=== PATIENT | female | born 1975 | race Caucasian/White ===

== ENCOUNTER 2019-10-26 20:00 | Outpatient (CLI) | payer OTHER, SELFPAY ==
--- NOTE | 2019-11-11 06:39 | SLEEP_ITS ---
DATE OF STUDY: 10/26/2019 REASON FOR STUDY: Obstructive sleep apnea. CLINICAL SUMMARY: [place] Sleepiness Scale, 10/20. Normal is 10 or less. Snoring, apneic events, morning headache, daytime sleepiness, memory impairment. Height is 66 inches. Weight is 195 pounds. Body mass index, BMI is 31.5. Less than 26 recommended. DESCRIPTION: Informed consent was obtained for the procedure, which included the simultaneous monitoring and recording of electroencephalography EEG, right electrooculography EOG, submental electromyography EMG, EKG, oral/nasal airflow, snoring, respiratory effort, oxygen saturation, right and left anterior tibialis electromyography EMG, and body position. Positive airway pressure therapy was applied and pressure slowly titrated upwards until optimal resolution of sleep-related respiratory disturbance was determined. EPOCHs of data was staged and scored by registered technologist according to published [facility] scoring guidelines and the 30% reduction in airflow associated with 4% or greater desaturation for definition of hypopnea. SLEEP ARCHITECTURE SUMMARY: Total recording time was 493.2 minutes. Total sleep time was 227 minutes. Stage N1 was 7% of the total sleep time, increased. Stage N2 was 60.4% of the total sleep time, increased. Stage N3 was 15.9% of the total sleep time, normal. Stage REM was 16.6% of the total sleep time, decreased. Latency to sleep onset was 6.4 minutes, decreased. Latency to REM sleep was 131 minutes, increased. Sleep efficiency care was 86.6%, normal. POSITIONAL SUMMARY: The patient slept 0 minutes/0% in the supine position. Slept 487.6 minutes/114.2% in the non-supine position. AROUSAL SUMMARY: No arousals were caused by apnea with index of 0 per hour. No arousals were caused by hypopnea with index of 0 per hour. One arousal was caused by snore with index of 0.1 per hour. Eight-five arousals were spontaneous with index of 10.3 per hour. Forty-two arousals were caused by limb movements with index of 5.1 per hour. Total number of arousals were 128 with index of 15.6 per hour. RESPIRATORY EVENTS SUMMARY: Total number of all apneas was 0. Total number of hypopnea was 0. Total number of apnea during REM was 0. Total number of hypopnea during REM was 0. Total number of apnea during non-REM was 0. Total number of hypopnea during the non-REM was 0. Total number of hypopnea was 0 with index of 0 per hour. Total number of obstructive hypopnea was 0 with index of 0 per hour. Total number of central hypopnea was 0 with index of 0 per hour. Total apnea-hypopnea index AHI was 0 per hour. Total obstructive apnea-hypopnea index AHI was 0 per hour. Total central apnea-hypopnea index AHI was 0 per hour. Total respiratory disturbance index, RDI was 0 per hour. OXYGEN SATURATION SUMMARY: During sleep, mean oxygen saturation was 96.6%. Maximum oxygen saturation was 98%. Minimum oxygen saturation was 93%. Oxygen saturation was lower than 90% for 0% of the total recording time. Oxygen saturation was lower than 88% for 0% of the total recording time. LIMB MOVEMENTS SUMMARY: Number of limb movements were 817 with index of 114.8 per hour. Number of periodic limb movements were 10 with index of 1.4 per hour. SNORE SUMMARY: Total number of snore was 82. HEART RATE SUMMARY: During sleep, mean heart rate was 54.7 beats per minute. Maximum heart rate was 111.9 beats per minute. Minimum heart rate was 29.1 beats per minute. CARDIAC EVENTS SUMMARY: Normal sinus rhythm was recorded throughout the night. CPAP THERAPY SUMMARY: ASV titration was performed from the beginning of the study. Different pressures were used at 5/315 and 6/315 cm of water due to obstructive respiratory events and snoring. However, when ASV was used, they
== END 2019-10-26 20:01 | disposition home or self-care (01) ==
LOC: ANHCSM 01-12 16:50
PROVIDERS: PCP Physician Assistant
DX: G47.33 Obstructive sleep apnea (adult) (pediatric) (principal)
CPT/HCPCS: 95811

== ENCOUNTER 2020-08-31 01:52 | Outpatient (CLI) | payer OTHER, SELFPAY ==
[2020-09-01 03:00] LABS: SARS-CoV-2 RNA PCR Negative
== END 2020-08-31 01:53 | disposition home or self-care (01) ==
LOC: ANHCOVIDDT 01:52
PROVIDERS: Visit Provider Obstetrics & Gynecology
DX: Z01.812 Encounter for preprocedural laboratory examination (principal); Z20.828 Contact with and (suspected) exposure to other viral communicable diseases
CPT/HCPCS: 87635; C9803; U0003

== ENCOUNTER 2020-08-31 08:20 | Outpatient (CLI) | payer OTHER, SELFPAY ==
[2020-08-31 09:14] LABS: Basophils Percent Auto 0.4 % (0.2-1.2); Eosinophils Absolute Auto 0.2 K/mm3 (0-0.3); Eosinophils Percent Auto 2.8 % (0-4.4); Hematocrit 40.4 % (37.0-47.0); Hemoglobin 13.2 g/dL (12.0-15.0); Immature Granulocyte Absolute 0.05 K/mm3 (0.00-0.031); Immature Granulocyte Percent A 0.7 % (0-0.5); Lymphocytes Absolute Auto 2.43 K/mm3 (0.9-3.2); Lymphocytes Percent Auto 33.5 % (18.3-44.2); Mean Corpuscular HGB Conc 32.7 g/dl (32-36); Mean Corpuscular Hemoglobin 31.5 pg (26-34); Mean Corpuscular Volume 96.4 fl (80-100); Mean Platelet Volume 9.4 fl (7.4-10.4); Monocytes Absolute Auto 0.4 K/mm3 (0.1-0.6); Monocytes Percent Auto 5.8 % (2.6-8.5); Neutrophils Absolute Auto 4.1 K/mm3 (1.3-6.7); Neutrophils Percent Auto 56.8 % (45.5-73.1); Platelet Count Result 290 k/mm3 (150-375); Red Blood Count 4.19 M/mm3 (4.2-5.4); Red Cell Distribution Width 12.9 % (11.5-14.5); White Blood Count 7.3 K/mm3 (4.5-10.0)
== END 2020-08-31 08:21 | disposition home or self-care (01) ==
LOC: ANHSURGERY 08:22
PROVIDERS: PCP Physician Assistant; Visit Provider Obstetrics & Gynecology
DX: R10.2 Pelvic and perineal pain (principal)
CPT/HCPCS: 36415; 85025; 86850; 86900; 86901

== ENCOUNTER 2020-09-02 02:41 | Day surgery (SDC) | payer OTHER, SELFPAY ==
[2020-08-24 12:58] VITALS: BMI 33.7
--- NOTE | 2020-08-31 07:11 | PM.IMHP ---
H&P: HPI History of Present Illness Date/Time: 08/31/20 07:11 Chief complaint: Pelvic Pain, Irregular Bleeding, Enlarged Uterus Narrative: Fuad Mata is a 45 year old female is status post uterine ablation who is admitted for robotic total vaginal hysterectomy and bilateral salpingectomies. She is status post ablation as noted. She has uterine prolapse and has pain discomfort and dyspareunia. She feels as though things are falling out. Risks and benefits were reviewed including but not exclusive of , aspiration pneumonia, bleeding, transfusion, perforation injury to bowel, bladder, ureters, or other internal organs with need for laparotomy. She voiced understanding. She received the [employer] handout entitled hysterectomy as well as the [facility] handout. She asked to proceed Review of Systems Review of Systems: All systems reviewed & are unremarkable except as noted in HPI and below PMFSH Family History Family History Mother Asthma Father Carcinoma of colon Other Diabetes mellitus Hypertension Social History Social History Smoking status: Current some day smoker Tobacco type: cigarettes Additional smoking assessment comments: APPROX 10 CIGARETTES/MONTH- SOCIAL SMOKER FOR LAST 20 YEARS Alcohol intake: current Drinks per week: 2 Spiritual care concerns: No Meds Home Medications and Allergies Home Medications Medication Instructions Recorded Confirmed Type ibuprofen 600 mg PO Q6H PRN 08/24/20 08/24/20 History levothyroxine 88 mcg PO DAILY 08/24/20 08/24/20 History Allergies Allergy/AdvReac Type Severity Reaction Status Date / Time oxycodone AdvReac nausea/vomi Verified 08/24/20 12:59 ting Exam Const: General: no acute distress Eyes: General: appearance normal, both eyes and all related structures Neck: Neck: supple and no JVD Thyroid: thyroid normal Resp: Effort & Inspection: normal respiratory effort Auscultation: clear to auscultation bilaterally Cardio: Rate: regular rate Rhythm: regular rhythm GI: Inspection: non-distended GI Palp: Yes Soft to palpation, No Tenderness to palpation present (GI) and No Guarding due to palpation present (GI) Auscultation: normal bowel sounds : General: Yes bladder normal to inspection External Female Exam: normal external appearance Speculum Exam - Cervix: Cervical os closed Bimanual exam- vagina & uterus: enlarged and Uterus displaced ( second-degree prolapse is noted) Skin: General skin exam: no rashes or lesions noted Extrem: General: normal to inspection and no edema Psych: Mental Status: mental status grossly normal Affect: normal affect Assessment and Plan Additional Plan impression: Enlarged uterus pelvic pain and prolapse. Blood bleeding per the patient secondary to ablation Plan: Robotic total vaginal hysterectomy and bilateral salpingectomies
--- NOTE | 2020-09-01 12:57 | WPDANESEPPF ---
Anes - Initial Pre Proc Eval Procedure: Operation Date: 09/02/20 07:30 Proposed Procedures p Robotic Assisted Total Vaginal Hysterectomy With Bilateral Salpingectomy - Shamir Ga MD Date/Time: 09/01/20 12:57 Surgeon: Shamir Ga MD Pre Op Diagnosis: Pelvic Pain, Irregular Bleeding, Enlarged Uterus Patient Data Age: 45 Gender: F Height: 1.65 m Weight: 92.08 kg Allergies Allergy/AdvReac Type Severity Reaction Status Date / Time oxycodone AdvReac nausea/vomi Verified 09/02/20 06:24 ting Home Medications Medication Instructions Recorded Confirmed Type ibuprofen 600 mg PO Q6H PRN 08/24/20 09/02/20 History levothyroxine 88 mcg PO DAILY 08/24/20 09/02/20 History hydrocodone-acetaminophen 1 tablet PO Q6H PRN #30 tablet 09/02/20 Rx Patient hx anesthesia problems: none Family hx anesthesia problems: none PMFSH Past Medical History Medical History Hypothyroidism Leiomyoma Obesity MARTHA (obstructive sleep apnea) Smoker Family History Family History Mother Asthma Father Carcinoma of colon Other Diabetes mellitus Hypertension Social History Social History Smoking status: Current some day smoker Tobacco type: cigarettes Additional smoking assessment comments: APPROX 10 CIGARETTES/MONTH- SOCIAL SMOKER FOR LAST 20 YEARS Alcohol intake: current Drinks per week: 2 Spiritual care concerns: No Anes - Eval Final PreProcedure Day of Procedure 09/01/20 12:57 Patient weight: obese Heart: regular rate and rhythm Lungs: clear to auscultation and normal air movement Airway: Mallampati scale class II Neurological: alert and oriented Last oral intake: >/= 8 hours ASA classification: III Emergent: no Anesthetic plan: proceed Anesthesia type and monitoring: general ETT Informed Consent: The patient's anesthetic plan and its attendant risks and benefits were discussed with the patient/family/POA. Questions were solicited and answers provided to the satisfaction of the patient/family/POA.
[2020-09-02] VITALS (18 sets, daily range): BP systolic 103–130; BP diastolic 60–91; PULSE 55–89; RESP 10–18; TEMP 36.3–36.9; O2SAT 97–100
--- NOTE | 2020-09-02 06:27 | WPDHPUPDATE1 ---
History and Physical Update Update Date/Time: 09/02/20 06:27 History and Physical has been reviewed, including an updated exam of the patient. There are NO changes in the patient's condition. Risks, benefits, and alternatives have been discussed and questions answered. Patient agrees to proceed with procedure.
[2020-09-02] MEDS: ACETAMINOPHEN 500 MG TABLET 1000 MG PO (06:59)
[2020-09-02] MEDS: KETOROLAC 15 MG/ML VIAL (*BKC) IV PUSH (07:00)
[2020-09-02] MEDS: LACTATED RINGERS 1,000 ML 30 ML IV CONT ×2 (07:00→08:41)
[2020-09-02] MEDS: ceFAZolin 2 GM/D5W 50 ML 2 GM/50 ML BAG IVPB (07:19)
--- NOTE | 2020-09-02 08:26 | P.OP_ITS ---
Procedure Note - Detailed Date of procedure: 09/02/20 Pre-op diagnosis: Pelvic Pain, Irregular Bleeding, Enlarged Uterus Surgeon: Shamir Ga MD Postop diagnosis: Pelvic pain/ irregular bleeding / enlarged uterus Procedure: Robotic total vaginal hysterectomy and bilateral salpingectomy EBL: 100cc Anesthesia: General endotracheal Complications: None Findings: Mildly enlarged uterus. Normal-appearing ovaries and tubes Description of procedure: The patient was prepped and draped in the normal sterile fashion and placed in the dorsal lithotomy position. Under excellent general endotracheal anesthesia weighted speculum was placed in posterior fornix vagina. Anterior lip of the cervix was grasped with a single-tooth tenaculum. The uterus sounded to 9cm. Serial dilatation with fragmented dilators were for performed. Next the 8. CHHAYA and the 3. Cold cup were placed on the cervix. The remainder the instruments in the vagina removed. Gloves were changed A supraumbilical incision was made and the Veress needle was passed in the abdomen. The abdomen filled with CO2 gas to 15mm Hg. The 8mm trocar was advanced in the abdomen. The downside visualized and no injury seen. The gas was attached and the patient placed in Trendelenburg. Right and left lateral quadrant incisions made and the 8mm trocars and advanced under direct visualization assuring no injury. In like fashion the right upper quadrant incision was made, and the 10mm trocar advanced under direct visualization assuring no injury. The robot was docked. Attention was turned to the console. The left round ligament was grasped, burned, cut. Anteriorly a bladder flap was formed by sharply dissecting the bladder caudally away from the cervix and uterus to the opposite round ligament which was clamped, burned, cut. Next the left fallopian tube was sharply dissected with cautery and monopolar by to be removed the entire tube itself. In like fashion the right fallopian tube was dissected away from the and brought to the level of the uterine body. Next the left utero-ovarian ligament was skeletonized thickened conserve the left ovary this was clamped, burned, cut. This was brought to the level of previously cut round ligament in like fashion conserving the right ovary the utero-ovarian ligament was clamped, burned, cut and brought to the level of the previously cut round ligament. Next the left cardinal and broad ligaments were serially skeletonized with the cervix and uterus clamped, burned, cut until the uterine vessels could be seen. These were individually clamped, burned, cut. In like fashion the cardinal and broad ligaments on the right were serially skeletonized. These were clamped, burned, cut until the uterine vessels were noted could be seen these were individually clamped, burned, cut. At that point excellent blanching of the uterus was seen. Colpotomy incision was made in the uterus cervix and tubes removed through the vagina. Blood loss was [id number] at that point. The vagina was closed with continuous running 0V lock from lateral edge to lateral edge and back to the midline. Irrigation was undertaken until clear and [place] Rim was applied to the raw surface area vagina. The gas was removed from the abdomen after the robot was undocked. The trocars were removed and the incisions closed with glue. All sponge, needle, instrument counts were correct. There were no immediate complications
[2020-09-02] MEDS: fentaNYL CITRATE INJ (*CRX) 100 MCG/2 ML VIAL 25 MCG IV PUSH ×2 (09:09→09:21)
[2020-09-02] MEDS: ONDANSETRON INJ 4 MG/2 ML VIAL IV PUSH (09:42)
--- NOTE | 2020-09-02 10:03 | SUR.PHASEI ---
Called RN to give report and she is hanging blood for another patient so report will be a bit yet.
--- NOTE | 2020-09-02 10:21 | PC.NURSE ---
This patient, Fuad Mata, was received from PACU on 09/02/20 at 1021. Patient/family oriented to unit policies and routines
[2020-09-02] MEDS: DEXTROSE 5%/LACTATED RINGERS 1,000 ML 125 ML IV CONT (10:44)
[2020-09-02] MEDS: MORPHINE SULFATE (*CRX) 4 MG/ML INJ IV PUSH (10:44)
[2020-09-02] MEDS: KETOROLAC 30 MG/ML VIAL (*BKC) IV PUSH ×2 (14:07→19:33)
[2020-09-02] MEDS: DOCUSATE SODIUM 100 MG CAPSULE PO (16:56)
[2020-09-02] MEDS: SIMETHICONE 80 MG TAB.CHEW PO (16:56)
[2020-09-02] MEDS: HYDROcodone/acetaminophen (*CRX) 5-325 MG TABLET 1 TAB PO (19:13)
[2020-09-03] MEDS: HYDROcodone/acetaminophen (*CRX) 5-325 MG TABLET 1 TAB PO ×3 (00:30→11:29)
[2020-09-03] MEDS: KETOROLAC 30 MG/ML VIAL (*BKC) IV PUSH ×2 (01:17→08:31)
--- NOTE | 2020-09-03 01:25 | PM.GYNPNOP ---
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 Tolerating diet. Would like to go home this am. Exam Narrative: Exam Narrative: AVSS I/O OK ABD soft, nontender. Incisions c/d/i. 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 [employer]E INSERTER - PN: Obj Data Vital Signs Vital Signs: Vital Signs - 24 hr 09/02/20 06:09 09/02/20 08:41 09/02/20 08:55 Temperature 36.4 C L 36.3 C L Pulse Rate 76 80 55 L Respiratory Rate 16 12 10 L Blood Pressure 129/91 H 103/60 109/63 Pulse Oximetry 100 100 100 09/02/20 09:10 09/02/20 09:25 09/02/20 09:40 Temperature Pulse Rate 59 L 62 61 Respiratory Rate 12 14 12 Blood Pressure 116/75 113/72 112/81 Pulse Oximetry 99 100 99 09/02/20 09:55 09/02/20 10:10 09/02/20 10:23 Temperature 36.3 C L Pulse Rate 62 62 66 Respiratory Rate 10 L 12 16 Blood Pressure 121/72 119/79 130/87 Pulse Oximetry 99 97 100 09/02/20 10:30 09/02/20 10:45 09/02/20 11:00 Temperature Pulse Rate 60 66 59 L Respiratory Rate 16 16 16 Blood Pressure 126/77 121/84 125/80 Pulse Oximetry 100 100 99 09/02/20 11:30 09/02/20 12:00 09/02/20 13:00 Temperature 36.9 C Pulse Rate 62 72 89 Respiratory Rate 16 16 16 Blood Pressure 124/81 126/85 120/84 Pulse Oximetry 100 100 100 09/02/20 14:51 09/02/20 15:45 09/02/20 19:25 Temperature 36.9 C 36.5 C 36.8 C Pulse Rate 80 81 68 Respiratory Rate 16 18 14 Blood Pressure 123/77 119/71 125/77 Pulse Oximetry 98 98 Intake/Output Intake/Output: Intake & Output 08/31/20 09/01/20 09/02/20 09/03/20 23:59 23:59 23:59 23:59 Intake Total 1950 Output Total 2820 450 Balance -870 -450 Meds/Results Medications: Active Medications Generic Name Dose Route Start Last Admin Trade Name Freq PRN Reason Stop Dose Admin Hydrocodone Bitart/Acetaminophen 1 tab 09/02/20 10:27 09/03/20 00:30 Hydrocodone/Acetaminophen (*Crx) 5-325 Mg Tablet PO 1 tab Q3H PRN Administration Pain Rated 5 or Less Hydrocodone Bitart/Acetaminophen 1 tab 09/02/20 10:27 Hydrocodone/Acetaminophen (*Crx) 10-325 Mg Tablet PO Q3H PRN Pain Rated 6 or Greater Docusate Sodium 100 mg 09/02/20 10:27 09/02/20 18:17 Docusate Sodium 100 Mg Capsule PO Not Given BID IRLANDA Enoxaparin Sodium 40 mg 09/02/20 10:27 09/02/20 18:17 Enoxaparin 40 Mg/0.4 Ml Syringe SUB-Q Not Given DAILY IRLANDA Dextrose/Lactated Ringer's 1,000 mls @ 125 mls/hr 09/02/20 10:27 09/02/20 18:50 Dextrose 5%/Lactated Ringers IV CONT Infused .Q8H IRLANDA Infusion Ibuprofen 600 mg 09/02/20 10:27 Ibuprofen 600 Mg Tablet PO Q6H PRN Cramping Ketorolac Tromethamine 30 mg 09/02/20 10:27 09/03/20 01:17 Ketorolac 30 Mg/Ml Vial (*Bkc) IV PUSH 09/07/20 10:28 30 mg Q6H PRN Administration Pain Rated 4-6 Morphine Sulfate 4 mg 09/02/20 10:27 09/02/20 10:44 Morphine Sulfate (*Crx) 4 Mg/Ml Inj IV PUSH 4 mg Q4H PRN Administration Severe breakthrough pain Naloxone HCl 0.1 mg 09/02/20 10:27 Naloxone Hcl 0.4 Mg/Ml Vial IV PUSH Q2M PRN Respiratory rate less than 10 Ondansetron HCl 4 mg 09/02/20 10:27 Ondansetron Inj 4 Mg/2 Ml Vial IV PUSH Q6H PRN Nausea And Vomiting Simethicone 80 mg 09/02/20 10:27 09/02/20 16:56 Simethicone 80 Mg Tab.Chew PO 80 mg Q2H PRN Administration Gas
[2020-09-03 04:25] VITALS: BP 117/82; PULSE 73; RESP 14; TEMP 36.9; O2SAT 99
[2020-09-03 04:59] LABS: Basophils Percent Auto 0.2 % (0.2-1.2); Eosinophils Percent Auto 0.4 % (0-4.4); Hematocrit 33.4 % (37.0-47.0); Hemoglobin 11.1 g/dL (12.0-15.0); Immature Granulocyte Absolute 0.03 K/mm3 (0.00-0.031); Immature Granulocyte Percent A 0.3 % (0-0.5); Lymphocytes Absolute Auto 2.88 K/mm3 (0.9-3.2); Lymphocytes Percent Auto 26.1 % (18.3-44.2); Mean Corpuscular HGB Conc 33.2 g/dl (32-36); Mean Corpuscular Hemoglobin 31.3 pg (26-34); Mean Corpuscular Volume 94.1 fl (80-100); Mean Platelet Volume 9.4 fl (7.4-10.4); Monocytes Absolute Auto 0.8 K/mm3 (0.1-0.6); Monocytes Percent Auto 7.3 % (2.6-8.5); Neutrophils Absolute Auto 7.3 K/mm3 (1.3-6.7); Neutrophils Percent Auto 65.7 % (45.5-73.1); Platelet Count Result 257 k/mm3 (150-375); Red Blood Count 3.55 M/mm3 (4.2-5.4); Red Cell Distribution Width 12.6 % (11.5-14.5)
[2020-09-03 08:15] VITALS: BP 117/82; BP 123/80; PULSE 57; PULSE 73; RESP 14; RESP 18; TEMP 36.4; TEMP 36.9; O2SAT 100; O2SAT 99
[2020-09-03] MEDS: DOCUSATE SODIUM 100 MG CAPSULE PO (08:30)
[2020-09-03] MEDS: ENOXAPARIN 40 MG/0.4 ML SYRINGE SUB-Q (08:31)
[2020-09-03] MEDS: SIMETHICONE 80 MG TAB.CHEW PO (11:30)
== END 2020-09-03 12:28 | disposition home or self-care (01) ==
LOC: ANHSURGERY 06:37 → ANHOB2 10:29
PROVIDERS: PCP Physician Assistant; Visit Provider Obstetrics & Gynecology
PROC: (CPT 58552; principal; 2020-09-02 07:30)
DX: R10.2 Pelvic and perineal pain (principal); N93.9 Abnormal uterine and vaginal bleeding, unspecified; N72 Inflammatory disease of cervix uteri; N83.8 Other noninflammatory disorders of ovary, fallopian tube and broad ligament; E03.9 Hypothyroidism, unspecified; G47.33 Obstructive sleep apnea (adult) (pediatric); E66.9 Obesity, unspecified; Z68.34 Body mass index [BMI] 34.0-34.9, adult; F17.210 Nicotine dependence, cigarettes, uncomplicated
CPT/HCPCS: 58552; S2900; 36415; 85025; 88307; 99199; A9270; J0690; J1100; J1170; J1650; J1885; J2250; J2270; J2405; J2704; J2710; J3010; J7030; J7120; J7121

== ENCOUNTER 2020-09-15 12:42 | Emergency (ER) | payer OTHER, SELFPAY ==
[2020-09-15 12:50] VITALS: BP 157/100; PULSE 137; RESP 22; TEMP 37.1; O2SAT 100
--- NOTE | 2020-09-15 12:59 | ED.FEMALEGU ---
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 She had a hysterectomy 12 days ago. She had been doing well until today when she stood up after eating lunch and had a sudden chin of blood, which continues now. No weakness, dizziness, SOB. Related Data Home Medications Medication Instructions Recorded Confirmed ibuprofen 600 mg PO Q6H PRN 08/24/20 09/02/20 levothyroxine 88 mcg PO DAILY 08/24/20 09/02/20 ciprofloxacin HCl 09/15/20 Allergies Allergy/AdvReac Type Severity Reaction Status Date / Time oxycodone AdvReac nausea/vomi Verified 09/15/20 12:54 ting Review of Systems Review of Systems: All systems reviewed & are unremarkable except as noted in HPI and below Constitutional: Constitutional: Denies fatigue Cardiovascular: Cardiovascular: Denies chest pain Respiratory: Respiratory: Denies dyspnea Gastrointestinal: Gastrointestinal: Denies abdominal pain, Denies nausea and Denies vomiting Genitourinary: Genitourinary: Denies hematuria Neurologic: Denies dizziness, Denies syncope and Denies weakness [facility] Past Medical History Medical History Hypothyroidism Leiomyoma Obesity MARTHA (obstructive sleep apnea) Smoker Surgical History Surgical History H/O: hysterectomy Family History Family History Mother Asthma Father Carcinoma of colon Other Diabetes mellitus Hypertension Social History Social History Smoking status: Current some day smoker Tobacco type: cigarettes Additional smoking assessment comments: APPROX 10 CIGARETTES/MONTH- SOCIAL SMOKER FOR LAST 20 YEARS Alcohol intake: current Drinks per week: 2 Gender identity (if verbalized by the patient): Female Spiritual care concerns: No Exam Const: General: healthy appearing, no acute distress and alert Orientation/consciousness: patient oriented x3 HENMT: Head: normal to inspection Neck: Neck: normal visual inspection and no lymphadenopathy Chest: Chest palpation & inspection: no tenderness Resp: Effort & Inspection: normal respiratory effort Auscultation: clear to auscultation bilaterally, no rales, no rhonchi and no wheezes Cardio: Jugular venous distension: no JVD Rate: regular rate Rhythm: regular rhythm Heart sounds: no murmurs GI: Inspection: non-distended GI Palp: Yes Soft to palpation and No Tenderness to palpation present (GI) : Speculum Exam - Vagina: normal appearance of the vagina and vaginal bleeding (minimal source not visualized. exam mildly limited due to patient discomfor) Skin: General skin exam: normal color Neuro: General: patient oriented x3 and moves all extremities Speech: normal speech Extrem: General: no edema Psych: Appearance: well kempt Affect: normal affect Course Vital Signs Vital signs: Vital Signs Temperature 37.1 C 09/15/20 12:50 Pulse Rate 137 H 09/15/20 12:50 Respiratory Rate 22 H 09/15/20 12:50 Blood Pressure 157/100 H 09/15/20 12:50 Pulse Oximetry 100 09/15/20 12:50 Temperature 37.1 C 09/15/20 12:50 Pulse Rate 85 09/15/20 14:52 Respiratory Rate 16 09/15/20 14:52 Blood Pressure 125/90 09/15/20 14:52 Pulse Oximetry 98 09/15/20 14:52 MDM - Female Genitourinary MDM Narrative Medical decision making narrative: Labs stable. Case discussed with Dr. Hernandez. Since labs are stable and bleeding has slowed she is okay for discharge. He will see her in clinic to do a speculum exam today or tomorrow. Differential Diagnosis Differential diagnosis: Likely other (hematoma. Wound dehiscenece ) Medical Records Attestation: I reviewed the patient's medical
[2020-09-15 13:19] LABS: Basophils Absolute Auto 0.1 K/mm3 (0.0-0.1); Basophils Percent Auto 0.5 % (0.2-1.2); Eosinophils Absolute Auto 0.4 K/mm3 (0-0.3); Eosinophils Percent Auto 3.5 % (0-4.4); Hematocrit 38.5 % (37.0-47.0); Hemoglobin 12.9 g/dL (12.0-15.0); Immature Granulocyte Absolute 0.04 K/mm3 (0.00-0.031); Immature Granulocyte Percent A 0.4 % (0-0.5); Lymphocytes Absolute Auto 2.76 K/mm3 (0.9-3.2); Lymphocytes Percent Auto 27.3 % (18.3-44.2); Mean Corpuscular HGB Conc 33.5 g/dl (32-36); Mean Corpuscular Hemoglobin 31.5 pg (26-34); Mean Corpuscular Volume 93.9 fl (80-100); Mean Platelet Volume 9.1 fl (7.4-10.4); Monocytes Absolute Auto 0.6 K/mm3 (0.1-0.6); Monocytes Percent Auto 5.4 % (2.6-8.5); Neutrophils Absolute Auto 6.4 K/mm3 (1.3-6.7); Neutrophils Percent Auto 62.9 % (45.5-73.1); Platelet Count Result 353 k/mm3 (150-375); Red Cell Distribution Width 12.2 % (11.5-14.5); White Blood Count 10.1 K/mm3 (4.5-10.0)
[2020-09-15 13:31] LABS: Anion Gap 9 mmol/L (8-16); Blood Urea Nitrogen 12 mg/dL (7-17); Calcium 9.8 mg/dL (8.4-10.2); Carbon Dioxide 30 mmol/L (22-30); Chloride 101 mmol/L (98-107); Estimated CRCL calculation 88 ml/min; Estimated Glomerular Filt Rate > 60; Glucose 138 mg/dL (65-105); Potassium 3.6 mmol/L (3.4-5.0); Sodium 140 mmol/L (137-145)
[2020-09-15 13:43] LABS: INR 0.9; Prothrombin Time 13.2 Seconds (11.1-14.7)
[2020-09-15 13:45] LABS: Partial Thromboplastin Time 26.4 SECONDS (22.3-36.8)
[2020-09-15 14:52] VITALS: BP 125/90; PULSE 85; RESP 16; O2SAT 98
== END 2020-09-15 14:59 | disposition home or self-care (01) ==
PROVIDERS: Emergency Provider Emergency Medicine; PCP Physician Assistant
DX: N93.9 Abnormal uterine and vaginal bleeding, unspecified (principal); E03.9 Hypothyroidism, unspecified; E66.9 Obesity, unspecified; Z68.33 Body mass index [BMI] 33.0-33.9, adult; G47.33 Obstructive sleep apnea (adult) (pediatric); F17.210 Nicotine dependence, cigarettes, uncomplicated
CPT/HCPCS: 36415; 80048; 85025; 85610; 85730; 86850; 86900; 86901; 99284

== ENCOUNTER 2020-12-26 08:30 | Outpatient (CLI) | payer OTHER, SELFPAY ==
--- NOTE | ~2020-12-26 | MM_ITS ---
EXAMINATION: MM screening clemente BI w herbert HISTORY: Screening TECHNIQUE: Craniocaudal and mediolateral oblique 3-D tomosynthesis images were obtained and synthetic 2-D images were generated. CAD analysis was submitted and interpreted. COMPARISON: Comparison to multiple prior studies sequentially, with oldest reviewed study dated 03/2013. BREAST PARENCHYMAL COMPOSITION: There are scattered areas of fibroglandular density. FINDINGS: There is no evidence of suspicious mass, calcification, or architectural distortion to sugg est malignancy in either breast. There has been no suspicious interval change. IMPRESSION: 1. No mammographic evidence of malignancy. 2. Recommend routine screening mammography in one year. BI-RADS Category 1: Negative Reviewed, dictated and finalized at location A. 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
== END 2020-12-26 08:31 | disposition home or self-care (01) ==
LOC: ANHIMG 08:33
PROVIDERS: PCP Physician Assistant; Visit Provider Obstetrics & Gynecology
DX: Z12.31 Encounter for screening mammogram for malignant neoplasm of breast (principal)
CPT/HCPCS: 77063; 77067

== ENCOUNTER 2021-08-07 14:59 | Outpatient (CLI) | payer OTHER, SELFPAY ==
--- NOTE | ~2021-08-07 | MR_ITS ---
EXAMINATION: MR knee RT wo con DATE: 08/07/2021 15:55 INDICATION: Right knee injury. TECHNIQUE: Magnetic resonance imaging (MRI) of the right knee was performed without intravenous contr ast. Sequences included axial PD-weighted FS FSE, coronal PD-weighted FSE and PD-weighted FS FSE, sag ittal PD-weighted FSE, and sagittal T2-weighted FS FSE. COMPARISON: None. FINDINGS: Medial compartment: Medial meniscus is normal. There is shallow partial-thickness cartilage loss of tibial condyle. There is deep partial thickness cartilage loss of femoral condyle involving the lateral and central articu lar surface with mild subchondral edema-like marrow signal intensity. Osteophytes are noted. Lateral compartment: Lateral meniscus is normal. There is cartilage surface irregularity of tibial condyle. There is shall ow partial-thickness cartilage loss of femoral condyle, worst at the central articular surface. Osteo phytes are noted. Patellofemoral compartment: There is deep partial thickness cartilage loss of patellar medial facet and median ridge with mild casarez bchondral edema-like marrow signal intensity. There is shallow partial-thickness cartilage loss of pa tellar lateral facet. There is deep cartilage fissuring of central trochlea with mild subchondral ramon ma-like marrow signal intensity. Osteophytes are noted. Ligaments and tendons: The anterior and posterior cruciate ligaments are normal. There are changes of prior sprains of media l collateral ligament and fibular collateral ligament characterized by thickening and increased signa l intensity proximally. There is mild patellar tendinopathy. Fluid: There is a moderate-sized knee joint effusion. There is mild superficial infrapatellar bursitis. IMPRESSION: 1. Moderate chondrosis of medial and patellofemoral compartments and mild chondrosis of lateral pawan rtment. 2. Moderate-sized knee joint effusion. Reviewed, dictated and finalized at location A. IMPRESSION: 1. Moderate chondrosis of medial and patellofemoral compartments and mild chond rosis of lateral compartment. 2. Moderate-sized knee joint effusion.
== END 2021-08-07 15:00 | disposition home or self-care (01) ==
LOC: ANHIMG 15:05
PROVIDERS: PCP Physician Assistant; Visit Provider Orthopaedic Surgery
DX: M23.91 Unspecified internal derangement of right knee (principal); M25.461 Effusion, right knee
CPT/HCPCS: 73721

== ENCOUNTER 2022-02-02 07:10 | Outpatient (CLI) | payer OTHER, SELFPAY ==
--- NOTE | ~2022-02-02 | MM_ITS ---
EXAMINATION: MM screening clemente BI w herbert HISTORY: Screening TECHNIQUE: Craniocaudal and mediolateral oblique 3-D tomosynthesis images were obtained and synthetic 2-D images were generated. CAD analysis was submitted and interpreted. COMPARISON: Comparison to multiple prior studies sequentially, with oldest reviewed study dated 03/20. BREAST PARENCHYMAL COMPOSITION: There are scattered areas of fibroglandular density. FINDINGS: There is developing mass in the upper outer quadrant of the right breast. The left breast is stable without evidence for malignancy. IMPRESSION: 1. Developing right breast mass, upper outer quadrant. 2. Additional mammographic views and possible breast ultrasound are recommended. BI-RADS Category 0: Incomplete: Needs additional imaging evaluation. Reviewed, dictated and finalized at location A. IMPRESSION: 1. Developing right breast mass, upper outer quadrant. 2. Additional mammographic views and possible breast ultrasound are recommended . BI-RADS Category 0: Incomplete: Needs additional imaging evaluation.
== END 2022-02-02 07:11 | disposition home or self-care (01) ==
LOC: ANHIMG 07:13
PROVIDERS: PCP Physician Assistant; Visit Provider Obstetrics & Gynecology
DX: Z12.31 Encounter for screening mammogram for malignant neoplasm of breast (principal); R92.8 Other abnormal and inconclusive findings on diagnostic imaging of breast
CPT/HCPCS: 77063; 77067

== ENCOUNTER 2022-02-06 11:56 | Outpatient (CLI) | payer OTHER, SELFPAY ==
--- NOTE | ~2022-02-06 | MM_ITS ---
EXAMINATION: MM diagnostic clemente RT w herbert HISTORY: Developing right breast mass, upper outer quadrant, reported on 02/02/2022 screening mammogram TECHNIQUE: Additional 3-D tomosynthesis images of the right breast were performed and synthetic 2-D i mages were generated. CAD analysis was submitted and interpreted. COMPARISON: 02/02/2022 bilateral screening mammogram FINDINGS: The suggested mass is not reproduced on these additional views. No suspicious mass is noted . IMPRESSION: 1. No mammographic evidence of malignancy 2. Routine mammographic screening is recommended BI-RADS Category 1: Negative Reviewed, dictated and finalized at location A.
== END 2022-02-06 11:57 | disposition home or self-care (01) ==
PROVIDERS: PCP Physician Assistant; Visit Provider Obstetrics & Gynecology
DX: R92.8 Other abnormal and inconclusive findings on diagnostic imaging of breast (principal)
CPT/HCPCS: 77061; 77065; G0279

== ENCOUNTER 2023-01-25 01:31 | Day surgery (SDC) | payer OTHER, SELFPAY ==
[2023-01-14 14:20] VITALS: BMI 34.1
--- NOTE | 2023-01-24 13:59 | PM.HPGS ---
History of Present Illness History of Present Illness Consent: Risks, benefits, and alternatives have been discussed and questions answered. Patient agrees to proceed with procedure. Chief complaint: neoplasm screening Narrative: Fuad Mata is a 47 year old female Referred for colon cancer screening. Review of Systems Review of Systems: All systems reviewed & are unremarkable except as noted in HPI and below PMFSH Past Medical History Medical History Hypothyroidism Leiomyoma Obesity MARTHA (obstructive sleep apnea) Smoker Surgical History Surgical History H/O: hysterectomy History of cervical discectomy History of fusion of cervical spine History of nasal septoplasty Family History Family History Mother Asthma Father Carcinoma of colon Other Diabetes mellitus Hypertension Social History Social History Smoking status: Current every day smoker Tobacco type: cigarettes Additional smoking assessment comments: on occasion Alcohol intake: current Drinks per week: 2 Alcohol use details: on occasion Substance use: never Substance use type: does not use Living arrangements: with family Gender identity (if verbalized by the patient): Female Spiritual care concerns: No Meds Home Medications and Allergies Home Medications Medication Instructions Recorded Confirmed Type levothyroxine 88 mcg tablet 88 mcg PO DAILY 08/24/20 01/25/23 History progesterone micronized 100 mg 100 mg PO HS 01/14/23 01/25/23 History capsule Allergies Allergy/AdvReac Type Severity Reaction Status Date / Time No Known Allergies Allergy Verified 01/25/23 07:43 Exam Const: General: alert Orientation/consciousness: patient oriented x3 Resp: Auscultation: clear to auscultation bilaterally Cardio: Rhythm: regular rhythm GI: GI Palp: Yes Soft to palpation and No Tenderness to palpation present (GI) Neuro: General: patient oriented x3 Assessment and Plan Assessment and plan (1) Colon cancer screening: Code(s): Z12.11 - Encounter for screening for malignant neoplasm of colon Status: Acute Assessment and Plan: Colonoscopy with possible biopsy or polypectomy or cautery or injection of substances.
[2023-01-25 07:46] VITALS: BP 128/91; PULSE 67; RESP 16; TEMP 36.6; O2SAT 100
--- NOTE | 2023-01-25 07:46 | WPDANESEPPF ---
Anes - Initial Pre Proc Eval Procedure: Operation Date: 01/25/23 08:30 Proposed Procedures p Screening Colonoscopy - Ja Reynolds MD Date/Time: 01/25/23 07:46 Surgeon: Ja Reynolds MD Pre Op Diagnosis: neoplasm screening Patient Data Age: 47 Gender: F Height: 1.65 m Weight: 93 kg Allergies Allergy/AdvReac Type Severity Reaction Status Date / Time No Known Allergies Allergy Verified 01/25/23 07:43 Home Medications Medication Instructions Recorded Confirmed Type levothyroxine 88 mcg tablet 88 mcg PO DAILY 08/24/20 01/25/23 History progesterone micronized 100 mg 100 mg PO HS 01/14/23 01/25/23 History capsule Patient hx anesthesia problems: none Family hx anesthesia problems: none Results Review: All pre-operative results and documents have been reviewed as part of the pre-operative evaluation. [facility] Past Medical History Medical History Hypothyroidism Leiomyoma Obesity MARTHA (obstructive sleep apnea) Smoker Surgical History Surgical History H/O: hysterectomy History of cervical discectomy History of fusion of cervical spine History of nasal septoplasty Family History Family History Mother Asthma Father Carcinoma of colon Other Diabetes mellitus Hypertension Social History Social History Smoking status: Current every day smoker Tobacco type: cigarettes Additional smoking assessment comments: on occasion Alcohol intake: current Drinks per week: 2 Alcohol use details: on occasion Substance use: never Substance use type: does not use Living arrangements: with family Gender identity (if verbalized by the patient): Female Spiritual care concerns: No Anes - Eval Final PreProcedure Day of Procedure 01/25/23 07:46 Patient weight: obese Heart: regular rate and rhythm Lungs: clear to auscultation Airway: Mallampati scale class II Neurological: alert and oriented Last oral intake: >/= 8 hours ASA classification: III Emergent: no Anesthetic plan: proceed Anesthesia type and monitoring: general GIVS and standard monitoring Results Review: All pre-operative results and documents have been reviewed as part of the pre-operative evaluation. Informed Consent: The patient's anesthetic plan and its attendant risks and benefits were discussed with the patient/family/POA. Questions were solicited and answers provided to the satisfaction of the patient/family/POA.
[2023-01-25] MEDS: LACTATED RINGERS 1,000 ML 150 ML IV CONT (07:54)
[2023-01-25 08:38] VITALS: BP 127/81; PULSE 77; RESP 20; O2SAT 99
[2023-01-25 08:48] VITALS: BP 113/74; PULSE 66; RESP 16; O2SAT 99
[2023-01-25 08:58] VITALS: BP 116/76; PULSE 63; RESP 18; O2SAT 98
== END 2023-01-25 09:05 | disposition home or self-care (01) ==
PROVIDERS: PCP Physician Assistant; Visit Provider Internal Medicine Gastroenterology
PROC: 0DJD8ZZ Inspection of Lower Intestinal Tract, Via Natural or Artificial Opening Endoscopic (ICD-10-PCS; CPT 45378; principal; 2023-01-25 08:30)
DX: Z12.11 Encounter for screening for malignant neoplasm of colon (principal); Z80.0 Family history of malignant neoplasm of digestive organs; E03.9 Hypothyroidism, unspecified; G47.33 Obstructive sleep apnea (adult) (pediatric); E66.9 Obesity, unspecified; Z68.35 Body mass index [BMI] 35.0-35.9, adult; Z98.1 Arthrodesis status; F17.210 Nicotine dependence, cigarettes, uncomplicated
CPT/HCPCS: 45378; J2704; J7120

== ENCOUNTER → 2023-02-05 06:41 | Outpatient (CLI) | payer OTHER, SELFPAY ==
--- NOTE | ~2023-02-05 | MM_ITS ---
EXAMINATION: MM screening clemente BI w herbert HISTORY: Screening mammogram TECHNIQUE: Craniocaudal and mediolateral oblique 3-D tomosynthesis images were obtained and synthetic 2-D images were generated. CAD analysis was submitted and interpreted. COMPARISON: February 06, 2022 diagnostic right mammogram February 02, 2022, December 26, 2020, November 26, 2019 bilateral screening mammogram examinations BREAST PARENCHYMAL COMPOSITION: There are scattered areas of fibroglandular density. FINDINGS: There is no evidence of suspicious mass, calcification, or architectural distortion to sugg est malignancy in either breast. There has been no suspicious interval change. IMPRESSION: 1. No mammographic evidence of malignancy. 2. Recommend routine screening mammography in one year. BI-RADS Category 1: Negative Reviewed, dictated and finalized at location A.
== END ==
PROVIDERS: PCP Physician Assistant; Visit Provider Obstetrics & Gynecology
DX: Z12.31 Encounter for screening mammogram for malignant neoplasm of breast (principal)
CPT/HCPCS: 77063; 77067

== ENCOUNTER 2023-07-04 10:38 | Outpatient (CLI) | payer OTHER, SELFPAY ==
--- NOTE | ~2023-07-04 | CT_ITS ---
EXAMINATION: CT knee LT wo con DATE: 07/19/2023 17:17 INDICATION: Unilateral primary osteoarthritis left knee TECHNIQUE: High resolution computed tomography (CT) of the left lower extremity from the hip through the ankle was performed without intravenous contrast. Additional sagittal and coronal reconstructions were performed. Automated exposure control and iterative reconstruction technique were employed. The dose-length product was 2335.57 mGy-cm. COMPARISON: None FINDINGS: Alignment is normal. No fracture. Severe osteoarthritis of the medial compartment of the right knee w ith subarticular eburnation and mild cystlike changes and early remodeling of the anteromedial margin of the medial tibial plateau. Large marginal osteophytes in the medial compartment. Moderate size ma rginal osteophytes at the lateral and patellofemoral compartments. Small left knee joint effusion. Lo ose osteochondral body surrounded by small amount of fluid in the popliteal recess. Additional mild p olyarticular osteoarthritis at the left hip, ankle and multiple joints in the left foot. 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 Small amount of likely physiologic lani e fluid in the deep pelvis. Bladder and visualized portion of the uterus and bowels are unremarkable. No pathologically enlarged left pelvic or inguinal lymphadenopathy. IMPRESSION: 1. Severe medial compartment predominant osteoarthritis at the left knee. Reviewed, dictated and finalized at location A.
[2023-07-04 19:43] LABS: Urine Cotinine NEGATIVE
== END 2023-07-04 10:39 | disposition home or self-care (01) ==
LOC: ANHGOSHLAB 10:51
PROVIDERS: PCP Physician Assistant; Visit Provider Orthopaedic Surgery
DX: Z01.818 Encounter for other preprocedural examination (principal); M17.12 Unilateral primary osteoarthritis, left knee; E66.9 Obesity, unspecified; D21.9 Benign neoplasm of connective and other soft tissue, unspecified; E03.9 Hypothyroidism, unspecified; G47.33 Obstructive sleep apnea (adult) (pediatric); F17.200 Nicotine dependence, unspecified, uncomplicated
CPT/HCPCS: 80307

== ENCOUNTER 2023-07-04 17:07 | Outpatient (CLI) | payer OTHER, SELFPAY ==
--- NOTE | ~2023-07-04 | CT_ITS ---
EXAMINATION: CT knee LT wo con DATE: 07/04/2023 17:53 INDICATION: Unilateral primary osteoarthritis, left knee. TECHNIQUE: Computed tomography (CT) of the left lower limb was performed without intravenous contrast . Automated exposure control and iterative reconstruction technique were employed. The dose-length pr oduct was 2355.00 mGy-cm. COMPARISON: Left knee radiographs 03/21/2023 FINDINGS: Bone alignment is normal. No fracture. There is mild left hip osteoarthritis. There is a li juliana in the left iliopsoas muscle. Left knee demonstrates severe osteoarthritis of the medial compart ment and moderate osteoarthritis of the lateral and patellofemoral compartments. There is a moderate- sized knee joint effusion with loose bodies. IMPRESSION: 1. Severe left knee osteoarthritis. 2. Moderate-sized left knee joint effusion with loose bodies. Reviewed, dictated and finalized at location E.
== END 2023-07-04 17:08 | disposition home or self-care (01) ==
PROVIDERS: PCP Physician Assistant; Visit Provider Orthopaedic Surgery
DX: M17.12 Unilateral primary osteoarthritis, left knee (principal)
CPT/HCPCS: 73700; 80307

== ENCOUNTER 2023-07-05 06:42 | Outpatient (CLI) | payer OTHER, SELFPAY ==
--- NOTE | 2023-07-05 06:51 | ECG_ITS ---
Measurements Intervals [place] Rate: 66 P: 55 MI: 133 QRS: 42 QRSD: 85 T: 64 QT: 388 QTc: 408 Interpretive Statements SINUS RHYTHM NORMAL ECG NO PREVIOUS ECG AVAILABLE FOR COMPARISON Electronically Signed On 07-05-2023 7:02:06 CDT by Fernando Lopez D.O.
== END 2023-07-05 06:43 | disposition home or self-care (01) ==
PROVIDERS: PCP Physician Assistant; Visit Provider Orthopaedic Surgery
DX: M17.12 Unilateral primary osteoarthritis, left knee (principal); Z01.818 Encounter for other preprocedural examination
CPT/HCPCS: 93005

== ENCOUNTER → 2023-07-23 08:17 | Outpatient (CLI) | payer OTHER, SELFPAY ==
--- NOTE | ~2023-07-23 | US_ITS ---
EXAMINATION: US pelvic complete w TV DATE: 07/23/2023 09:05 INDICATION: Abnormal CT with pelvic mass TECHNIQUE: Multiple transabdominal and endovaginal sonographic images of the pelvis were obtained. COMPARISON: None. FINDINGS: The uterus is not visualized and has reportedly been resected. The right ovary measures 2.2 x 1.8 x 2 .6 cm with vascular flow on color Doppler 1.6 cm anechoic cyst/follicle within the right ovary. The l eft ovary is not visualized. There is a 5.7 x 5.6 x 5.2 cm hypoechoic soft tissue mass with some surr ounding free fluid in the region of the left adnexa. The mass is vascularized with internal flow with a venous waveform on color Doppler. IMPRESSION: 1. Indeterminate 5.7 cm solid soft tissue mass in the left adnexal region suggesting ovarian neoplasm either benign or malignant although the left ovary is not identified. Additional considerations woul d include retained fibroid post hysterectomy or exophytic GI stromal tumor arising from the bowel. Re commend PRESERVATIONIST consultation for further evaluation. Reviewed, dictated and finalized at location A. IMPRESSION: 1. Indeterminate 5.7 cm solid soft tissue mass in the left adnexal region sugge sting ovarian neoplasm either benign or malignant although the left ovary is no t identified. Additional considerations would include retained fibroid post hys terectomy or exophytic GI stromal tumor arising from the bowel. Recommend OB/GY N consultation for further evaluation.
== END ==
PROVIDERS: PCP Physician Assistant; Visit Provider Obstetrics & Gynecology
DX: R19.07 Generalized intra-abdominal and pelvic swelling, mass and lump (principal)
CPT/HCPCS: 76830; 76856

== ENCOUNTER 2023-07-23 09:59 | Outpatient (CLI) | payer OTHER, SELFPAY ==
[2023-07-23 12:42] LABS: Carcinoembryonic Antigen 3.6 ng/mL (0.0-3.0)
[2023-07-26 03:03] LABS: CA-125 12 U/mL (<35)
== END 2023-07-23 10:00 | disposition home or self-care (01) ==
LOC: ANHGOSHLAB 10:02
PROVIDERS: PCP Physician Assistant; Visit Provider Obstetrics & Gynecology
DX: Z12.73 Encounter for screening for malignant neoplasm of ovary (principal); N83.8 Other noninflammatory disorders of ovary, fallopian tube and broad ligament
CPT/HCPCS: 36415; 82378; 86304

== ENCOUNTER 2023-07-23 14:46 | Outpatient (CLI) | payer OTHER, SELFPAY ==
--- NOTE | ~2023-07-23 | CT_ITS ---
ADDENDUM: There is a dictation error in the third sentence of the findings section which with correction capitalized should read- Severe osteoarthritis of the medial compartment of the LEFT knee with subarticular eburnation and mild cystlike changes and early remodeling of the anteromedial margin of the medial tibial plateau. In addition further information was provided that the patient is status post hysterectomy. The incompletely visualized 6.7 x 5.3 cm soft tissue density surrounded by small amount of free fluid occupies the prior position of the uterus as seen on CT dated 02/17/2013 appears larger and more homogeneous in attenuation than would be expected for a loop of bowel. Differential would include a left adnexal complex cyst or mass. Would consider pelvic ultrasound for further evaluation. EXAMINATION: CT knee LT wo con DATE: 07/19/2023 17:17 INDICATION: Unilateral primary osteoarthritis left knee TECHNIQUE: High resolution computed tomography (CT) of the left lower extremity from the hip through the ankle was performed without intravenous contrast. Additional sagittal and coronal reconstructions were performed. Automated exposure control and iterative reconstruction technique were employed. The dose- length product was 2335.57 mGy-cm. COMPARISON: None FINDINGS: Alignment is normal. No fracture. Severe osteoarthritis of the medial compartment of the right knee with subarticular eburnation and mild cystlike changes and early remodeling of the anteromedial margin of the medial tibial plateau. Large marginal osteophytes in the medial compartment. Moderate size marginal osteophytes at the lateral and patellofemoral compartments. Small left knee joint effusion. Loose osteochondral body surrounded by small amount of fluid in the popliteal recess. Additional mild polyarticular osteoarthritis at the left hip, ankle and multiple joints in the left foot. 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 Small amount of likely physiologic free fluid in the deep pelvis. Bladder and visualized portion of the uterus and bowels are unremarkable. No pathologically enlarged left pelvic or inguinal lymphadenopathy. IMPRESSION: 1. Severe medial compartment predominant osteoarthritis at the left knee. MTDD
== END 2023-07-23 14:47 | disposition home or self-care (01) ==
PROVIDERS: PCP Physician Assistant; Visit Provider Orthopaedic Surgery
DX: M17.12 Unilateral primary osteoarthritis, left knee (principal)
CPT/HCPCS: 99199

== ENCOUNTER 2023-07-26 11:51 | Outpatient (CLI) | payer OTHER, SELFPAY | END 2023-07-26 11:52 | disposition home or self-care (01) | LOC: ANHGOSHLAB 11:53 | PROVIDERS: PCP Physician Assistant; Visit Provider Obstetrics & Gynecology | DX: N83.8 Other noninflammatory disorders of ovary, fallopian tube and broad ligament (principal) | CPT/HCPCS: 36415; 86850; 86900; 86901 ==

== ENCOUNTER 2023-07-30 01:21 | Day surgery (SDC) | payer OTHER, SELFPAY ==
[2023-07-26 10:09] VITALS: BMI 34.2
--- NOTE | 2023-07-26 10:13 | PC.NURSE ---
Report to the Outpatient Waiting Room, entrance under the green pavilion located off [facility], at time _0630_ on date _[id number]_. Planned Procedure Time: _0830_. Time changes happen often and if your time is changed the preop area will call you the afternoon before. - You and your visitor will be asked to self-screen and do not enter if you have any COVID symptoms. - A mask is optional within the hospital at this time. Patients may have clear liquids (water, carbonated beverages, clear teas, apple juice) until 3 hours prior to surgery with a maximum of 20 ounces. - No food from midnight until time of surgery Take the following medications with a SIP of water the morning of surgery: __Levothyroxine DO NOT STOP ANY OF YOUR OTHER PRESCRIPTION MEDICATIONS PRIOR TO SURGERY ?EXCEPT THE FOLLOWING Medications to discontinue per physician ____None Date to take last dose Please no make-up, nail prydeinig, hairspray, perfume, deodorant, or body powder the day of surgery. No jewelry (including any body piercings) or valuables the day of surgery, leave them at home. Please take a shower or bath the night before, or the morning of, surgery with an antibacterial soap. Wear comfortable, loose fitting clothing. - Jewelry must be removed prior to entering the operating room. Rings and piercings that are not removed may be cut off. - The hospital will not accept responsibility for valuables. - Please leave all valuables, including medications, at home the day of surgery. If you are going home after surgery, a licensed cement truck driver must drive you home. - NO public transportation without another adult if you receive anesthesia. - We recommend that an adult stay with you for 24 hours following discharge. - We also recommend that you do not drive, make important decision, drink alcoholic beverages, or take any drugs that were not prescribed by your health care provider for at least 24 hours after your discharge time. Follow any additional instructions given to you from your surgeon. If you or anyone in your household have experienced Covid symptoms in the past week, please notify your surgeon or the nurse liaison at the phone number below for possible testing. Telephone instructions given to __Patient__and asked if any additional questions and then verbalized understanding. Patient advised to call surgeon office or pre surgery nurse liaison [phone] if any additional questions.
--- NOTE | 2023-07-29 06:26 | PM.IMHP ---
H&P: HPI History of Present Illness Date/Time: 07/29/23 06:26 Chief Complaint: Left ovarian mass Narrative: this is a 48-year-old female with left-sided ovarian mass. She is status post hysterectomy and on CT there was a man seen. Her see EEA was mildly elevated but C1 25 is normal. Ultrasound shows it is probably an ovarian cyst. Risks and benefits of LSO were reviewed in great detail. She had all questions answered. She asked to proceed PMFSH Past Medical History Medical History Hypothyroidism Leiomyoma Obesity MARTHA (obstructive sleep apnea) Smoker Surgical History Surgical History H/O: hysterectomy History of cervical discectomy History of fusion of cervical spine History of nasal septoplasty Family History Family History Mother Asthma Father Carcinoma of colon Other Diabetes mellitus Hypertension Social History Social History Smoking status: Current some day smoker Tobacco type: cigarettes Alcohol intake: current Drinks per week: 2 Alcohol use details: on occasion Substance use: never Substance use type: does not use Lack of Transportation: No Lack of Food: Never True Current Housing: I Have Housing Concerned About Future Housing: No Difficulty Paying Gas/Electric Bills: No Difficulty Paying for Meds: No Currently Unemployed: No Education: Associate Degree Difficulty w/ Childcare or Family Care: No Living arrangements: with family Gender identity (if verbalized by the patient): Female Spiritual care concerns: No Meds Home Medications and Allergies Home Medications Medication Instructions Recorded Confirmed Type levothyroxine 88 mcg tablet 88 mcg PO DAILY 08/24/20 07/26/23 History progesterone micronized 100 mg 100 mg PO HS 01/14/23 07/26/23 History capsule Allergies Allergy/AdvReac Type Severity Reaction Status Date / Time No Known Allergies Allergy Verified 07/26/23 10:08 Exam Const: General: cooperative, healthy appearing and comfortable Nutritional Appearance: average body habitus Orientation/consciousness: oriented to person, oriented to place and oriented to time HENMT: Head: normal to inspection Resp: Effort & Inspection: normal respiratory effort Cardio: Rate: regular rate Rhythm: regular rhythm Heart sounds: S1 normal heart sound present and S2 normal heart sound present GI: Inspection: normal to inspection : Speculum Exam - Vagina: normal appearance of the vagina Speculum Exam - Cervix: Cervix absent Bimanual exam- vagina & uterus: uterus absent Bimanual Exam- Adnexa, other: tender on the left Assessment and Plan Assessment and plan (1) Left ovarian cyst: Code(s): N83.202 - Unspecified ovarian cyst, left side Status: Acute Plan laparoscopic LSO
[2023-07-30] VITALS (10 sets, daily range): BP systolic 118–148; BP diastolic 55–87; PULSE 59–104; RESP 13–16; TEMP 36.2–36.3; O2SAT 96–100
--- NOTE | 2023-07-30 06:09 | WPDHPUPDATE1 ---
History and Physical Update Update Date/Time: 07/30/23 06:09 History and Physical has been reviewed, including an updated exam of the patient. There are NO changes in the patient's condition. Risks, benefits, and alternatives have been discussed and questions answered. Patient agrees to proceed with procedure.
[2023-07-30] MEDS: ACETAMINOPHEN 500 MG TABLET 1000 MG PO (06:55)
[2023-07-30] MEDS: LACTATED RINGERS 1,000 ML 30 ML IV CONT ×2 (07:05→09:15)
[2023-07-30] MEDS: KETOROLAC 15 MG/ML VIAL (*BKC) IV PUSH (07:11)
--- NOTE | 2023-07-30 07:51 | P.PNAN_ITS ---
Anes - Initial Pre Proc Eval Procedure: Operation Date: 07/30/23 08:30 Proposed Procedures p Laparoscopic Left Salpingo-Oophorectomy - Shamir Jacobsen MD Date/Time: 07/30/23 07:51 Surgeon: Shamir Jacobsen MD Pre Op Diagnosis: left ovarian mass, pain Patient Data Age: 48 Gender: F Height: 1.65 m Weight: 97.8 kg Last Vital Signs Temp 97.4 F L 07/30/23 06:36 Pulse 76 07/30/23 06:36 Resp 16 07/30/23 06:36 BP 148/79 H 07/30/23 06:36 Pulse Ox 100 07/30/23 06:36 O2 Del Method Room Air 07/30/23 06:36 Allergies Allergy/AdvReac Type Severity Reaction Status Date / Time No Known Allergies Allergy Verified 07/30/23 07:22 Home Medications Medication Instructions Recorded Confirmed Type levothyroxine 88 mcg tablet 88 mcg PO DAILY 08/24/20 07/30/23 History progesterone micronized 100 mg 100 mg PO HS 01/14/23 07/30/23 History capsule hydrocodone 5 mg-acetaminophen 325 1 tablet PO Q4H PRN pain #20 tabs 07/30/23 Rx mg tablet Patient hx anesthesia problems: none Family hx anesthesia problems: none Results Review: All pre-operative results and documents have been reviewed as part of the pre- operative evaluation. FORMERLY [facility] Past Medical History Medical History Hypothyroidism Leiomyoma Obesity MARTHA (obstructive sleep apnea) Smoker Surgical History Surgical History H/O: hysterectomy History of cervical discectomy History of fusion of cervical spine History of nasal septoplasty Family History Family History Mother Asthma Father Carcinoma of colon Other Diabetes mellitus Hypertension Social History Social History Smoking status: Current some day smoker Tobacco type: cigarettes Alcohol intake: current Drinks per week: 2 Alcohol use details: on occasion Substance use: never Substance use type: does not use Lack of Transportation: No Lack of Food: Never True Current Housing: I Have Housing Concerned About Future Housing: No Difficulty Paying Gas/Electric Bills: No Difficulty Paying for Meds: No Currently Unemployed: No Education: Associate Degree Difficulty w/ Childcare or Family Care: No Living arrangements: with family Gender identity (if verbalized by the patient): Female Spiritual care concerns: No Anes - Eval Final PreProcedure Day of Procedure 07/30/23 07:51 Patient weight: obese Heart: regular rate and rhythm Lungs: clear to auscultation Airway: Mallampati scale class II Neurological: alert and oriented Last oral intake: >/= 8 hours ASA classification: II Emergent: no Anesthetic plan: proceed Anesthesia type and monitoring: general ETT and standard monitoring Results Review: All pre-operative results and documents have been reviewed as part of the pre- operative evaluation. Informed Consent: The patient's anesthetic plan and its attendant risks and benefits were discussed with the patient/family/POA. Questions were solicited and answers provided to the satisfaction of the patient/family/POA.
--- NOTE | 2023-07-30 09:01 | W.PM.PROC2 ---
Procedure Note - Detailed Date of Procedure 07/30/23 Pre-op Diagnosis left ovarian mass, pain Post-op Diagnosis Same Procedure Performed Laparoscopic left oophorectomy Surgeon Shamir Jacobsen MD Anesthesia General Indications Is a 48-year-old female status post hysterectomy with complex left ovarian cyst Findings Large left solid ovarian mass which appeared benign in nature. Normal-appearing right ovary. Uterus absent Description of Procedure Patient was prepped draped in the normal sterile fashion placed in the dorsal lithotomy position. Under excellent general trach anesthesia weighted speculum placed in posterior fornix of vagina. Sponge stick was placed in the bladder drained of clear urine. The weighted speculum was removed and gloves were changed. A supraumbilical incision made the Veress needle passed in the abdomen. Abdomen filled with CO2 gas. 15mmmmmercury. The 8mm trocar advanced in the abdomen. Downside visualized no injury seen. The patient placed in Trendelenburg and a suprapubic incision made. The 5mm trocar advanced under direct visualization assuring no injury. Approximately 30-40 cc of serosanguineous fluid within the cul-de-sac and this was suction removed. The uterus was absent the right ovary appeared within normal limits the right ovary very and tube was missing. The left tube was missing and a large ovarian cyst was present. Left lower quadrant incision made in the 10mm trocar advanced under direct visualization. The LigaSure was placed across the infundibulopelvic structure. The cyst mass placed in a Endo-Catch and removed piecemeal through the bag and the left lower quadrant incision. Hemostasis was assured. Irrigation was undertaken. The gas removed from the abdomen and the trocars removed. The incisions closed with 4 Monocryl and glue. The patient went to recovery in satisfactory condition. All sponge, needle, instrument counts were correct. There were no immediate complications Estimated Blood Loss 5 Drains No Packing No Pathology Yes Complications No immediate complications Condition Stable Disposition PACU
[2023-07-30] MEDS: fentaNYL CITRATE INJ (*CRX) 100 MCG/2 ML VIAL 25 MCG IV PUSH (09:47)
[2023-07-30] MEDS: oxyCODONE HCL (*CRX) 5 MG TAB IR PO (10:11)
== END 2023-07-30 11:13 | disposition home or self-care (01) ==
PROVIDERS: PCP Physician Assistant; Visit Provider Obstetrics & Gynecology
PROC: (CPT 49320; principal; 2023-07-30 08:30)
DX: D27.1 Benign neoplasm of left ovary (principal); R10.2 Pelvic and perineal pain; E03.9 Hypothyroidism, unspecified; G47.33 Obstructive sleep apnea (adult) (pediatric); E66.9 Obesity, unspecified; Z68.35 Body mass index [BMI] 35.0-35.9, adult; F17.210 Nicotine dependence, cigarettes, uncomplicated; Z98.1 Arthrodesis status
CPT/HCPCS: 58661; 88305; A9270; J0330; J1100; J1885; J2250; J2405; J2704; J3010; J7030; J7120

== ENCOUNTER → 2023-08-23 11:07 | Outpatient (CLI) | payer OTHER, SELFPAY ==
--- NOTE | ~2023-08-23 | XR_ITS ---
XR knee RT min 4V 08/23/2023 11:24 Indication: Right knee pain Procedure: 4 views right knee Comparison: No prior studies for comparison. Findings: There is moderate-severe tricompartment osteoarthritis, most advanced in the medial compart ment. There is a moderate joint effusion. No fracture or traumatic malalignment. Impression: 1: Moderate-severe tricompartment osteoarthritis of the right knee. 2: Moderate joint effusion. Reviewed, dictated and finalized at location B. Impression: 1: Moderate-severe tricompartment osteoarthritis of the right knee. 2: Moderate joint effusion.
== END ==
PROVIDERS: PCP Physician Assistant; Visit Provider Physician Assistant Surgical
DX: M17.11 Unilateral primary osteoarthritis, right knee (principal); M25.461 Effusion, right knee
CPT/HCPCS: 73564

== ENCOUNTER 2023-09-11 07:38 | Outpatient (CLI) | payer OTHER, SELFPAY ==
[2023-09-11 08:57] LABS: Basophils Absolute Auto 0.1 K/mm3 (0.0-0.1); Basophils Percent Auto 0.5 % (0.2-1.2); Eosinophils Absolute Auto 0.2 K/mm3 (0-0.3); Eosinophils Percent Auto 1.8 % (0-4.4); Hematocrit 40.3 % (37.0-47.0); Hemoglobin 12.9 g/dL (12.0-15.0); Immature Granulocyte Absolute 0.05 K/mm3 (0.00-0.031); Immature Granulocyte Percent A 0.4 % (0-0.5); Lymphocytes Absolute Auto 3.27 K/mm3 (0.9-3.2); Lymphocytes Percent Auto 27.9 % (18.3-44.2); Mean Corpuscular Hemoglobin 30.3 pg (26-34); Mean Corpuscular Volume 94.6 fl (80-100); Mean Platelet Volume 9.6 fl (7.4-10.4); Monocytes Absolute Auto 0.7 K/mm3 (0.1-0.6); Monocytes Percent Auto 5.6 % (2.6-8.5); Neutrophils Absolute Auto 7.5 K/mm3 (1.3-6.7); Neutrophils Percent Auto 63.8 % (45.5-73.1); Platelet Count Result 327 k/mm3 (150-375); Red Blood Count 4.26 M/mm3 (4.2-5.4); Red Cell Distribution Width 12.9 % (11.5-14.5); White Blood Count 11.7 K/mm3 (4.5-10.0)
[2023-09-11 09:06] LABS: Urine Cotinine NEGATIVE
[2023-09-11 09:08] LABS: Albumin Level 4.7 g/dL (3.5-5.1); Estimated Glomerular Filt Rate > 60; Glucose 109 mg/dL (65-110)
== END 2023-09-11 07:39 | disposition home or self-care (01) ==
LOC: ANHSURGERY 07:42
PROVIDERS: PCP Physician Assistant; Visit Provider Orthopaedic Surgery
DX: Z01.818 Encounter for other preprocedural examination (principal); M17.12 Unilateral primary osteoarthritis, left knee
CPT/HCPCS: 80307; 82040; 82565; 82947; 85025; 87081

== ENCOUNTER 2023-09-30 02:00 | Day surgery (SDC) | payer OTHER, SELFPAY ==
[2023-09-11 07:47] VITALS: BMI 36.4
--- NOTE | 2023-09-11 08:11 | PC.NURSE ---
Report to the Outpatient Waiting Room, entrance under the green pavilion located off [facility], at time 1000 on date _09/30/23 . Planned Procedure Time: __1200 . Time changes happen often and if your time is changed the preop area will call you the afternoon before. - You and your visitor will be asked to self-screen and do not enter if you have any COVID symptoms. - A mask is optional within the hospital at this time. Patients may have clear liquids (water, carbonated beverages, clear teas, apple juice) until 3 hours prior to surgery with a maximum of 20 ounces. - No food from midnight until time of surgery - Infants may have breast milk until 4 hours before surgery, formula 6 hours prior to surgery. - Children will be allowed to drink immediately following surgery. If applicable, please bring a bottle or sippy cup to assist with drinking. Juice, water, soda, and popsicles are readily available. For infants on formula, please bring formula the day of surgery. Pacifiers are allowed. Take the following medications with a SIP of water the morning of surgery: ___LEVOTHYROXINE DO NOT STOP ANY OF YOUR OTHER PRESCRIPTION MEDICATIONS PRIOR TO SURGERY ?EXCEPT THE FOLLOWING Medications to discontinue per physician ___HOLD IBUPROFEN 7 DAYS PRE OP PER DR PENN . LAST DOSE 09/22/23 MAY TAKE TYLENOL IF NEEDED FOR PAIN TOTAL JOINT CLASS 09/11/23 AT 10 AM Please no make-up, nail japanese, hairspray, perfume, deodorant, or body powder the day of surgery. No jewelry (including any body piercings) or valuables the day of surgery, leave them at home. Please take a shower or bath the night before, or the morning of, surgery with an antibacterial soap. Wear comfortable, loose fitting clothing. Children are encouraged to wear pajamas. - Jewelry must be removed prior to entering the operating room. Rings and piercings that are not removed may be cut off. - The hospital will not accept responsibility for valuables. - Please leave all valuables, including medications, at home the day of surgery. If you are going home after surgery, a licensed party bus driver must drive you home. - NO public transportation without another adult if you receive anesthesia. - We recommend that an adult stay with you for 24 hours following discharge. - We also recommend that you do not drive, make important decision, drink alcoholic beverages, or take any drugs that were not prescribed by your health care provider for at least 24 hours after your discharge time. For Pediatric surgeries, we recommend two adults accompany the child home. Follow any additional instructions given to you from your surgeon. If you or anyone in your household have experienced Covid symptoms in the past week, please notify your surgeon or the nurse liaison at the phone number below for possible testing. VERBAL AND WRITTEN instructions given to _PATIENT and asked if any additional questions and then verbalized understanding. Patient advised to call surgeon office or pre surgery nurse liaison [phone] if any additional questions.
[2023-09-11 08:29] VITALS: BP 145/88; PULSE 64; RESP 18; TEMP 36.6; O2SAT 100
[2023-09-30] VITALS (11 sets, daily range): BP systolic 133–150; BP diastolic 73–98; PULSE 71–111; RESP 12–18; TEMP 36.3–36.7; O2SAT 96–100
--- NOTE | ~2023-09-30 | XR_ITS ---
EXAMINATION: [id number] DATE: 09/30/2023 15:05 HEALTH AND SAFETY COORDINATOR INDICATION: Left total knee arthroplasty TECHNIQUE: 2 views left knee FINDINGS: There is a left total knee arthroplasty in expected position. Subcutaneous gas with fluid and air in the joint are consistent with recent surgery. No evidence of periprosthetic fracture. IMPRESSION: 1. Recent left total knee arthroplasty. Reviewed, dictated and finalized at location B. TH AND SAFETY COORDINATOR
[2023-09-30 10:35] LABS: White Blood Count 8.1 K/mm3 (4.5-10.0)
[2023-09-30] MEDS: LACTATED RINGERS 1,000 ML 30 ML IV CONT ×2 (10:45→14:48)
[2023-09-30] MEDS: TRANEXAMIC ACID 1,000MG/ISO100 1,000 MG/100 ML BAG 200 MG IVPB (11:00)
[2023-09-30] MEDS: ACETAMINOPHEN 500 MG TABLET 1000 MG PO ×3 (11:00→23:46)
[2023-09-30] MEDS: SCOPOLAMINE 1.5 MG PATCH TRANSDERM (11:00)
--- NOTE | 2023-09-30 11:08 | WPDANESEPPF ---
Anes - Initial Pre Proc Eval Procedure: Operation Date: 09/30/23 12:00 Proposed Procedures p Left Total Knee Arthroplasty - Lucian Head MD Date/Time: 09/30/23 11:08 Surgeon: Lucian Head MD Pre Op Diagnosis: primary oa left knee Patient Data Age: 48 Gender: F Height: 1.65 m Weight: 97 kg Last Vital Signs Temp 36.6 C 09/30/23 10:44 Pulse 85 09/30/23 10:44 Resp 14 09/30/23 10:44 BP 149/89 H 09/30/23 10:44 Pulse Ox 100 09/30/23 10:44 O2 Del Method Room Air 09/30/23 10:44 Allergies Allergy/AdvReac Type Severity Reaction Status Date / Time No Known Allergies Allergy Verified 09/11/23 08:58 Home Medications Medication Instructions Recorded Confirmed Type levothyroxine 88 mcg tablet 88 mcg PO DAILY 08/24/20 09/11/23 History progesterone micronized 100 mg 100 mg PO HS 01/14/23 09/11/23 History capsule hydrocodone 5 mg-acetaminophen 325 1 tablet PO Q4H PRN pain #20 tabs 07/30/23 09/11/23 Rx mg tablet ibuprofen 400 mg tablet 400 mg PO Q6H PRN Pain 09/11/23 09/11/23 History lorazepam 1 mg tablet 1 mg PO PRN PRN Insomnia 09/11/23 09/11/23 History omeprazole 20 mg capsule,delayed 20 mg PO DAILY 09/11/23 09/11/23 History release Laboratory Tests 09/30/23 10:29 WBC 8.1 K/mm3 (4.5-10.0) Blood Type Pending Antibody Screen Pending Patient hx anesthesia problems: none Family hx anesthesia problems: none Results Review: All pre-operative results and documents have been reviewed as part of the pre-operative evaluation. [facility] Past Medical History Medical History Hypothyroidism Leiomyoma Obesity MARTHA (obstructive sleep apnea) Smoker Surgical History Surgical History H/O: hysterectomy History of cervical discectomy History of fusion of cervical spine History of nasal septoplasty Family History Family History Mother Asthma Father Carcinoma of colon Other Diabetes mellitus Hypertension Social History Social History Years smoked: 20 Smoking status: Former smoker Tobacco type: cigarettes Smoking end date: 07/12/23 Additional smoking assessment comments: SOCIAL SMOKER 10 CIGARETTES PER MONTH. DENIES ANY FORM OF TOBACCO USE Alcohol intake: current Drinks per week: 2 Alcohol use details: 3 DRINKS PER MONTH Substance use: never Substance use type: does not use Lack of Transportation: No Lack of Food: Never True Current Housing: I Have Housing Concerned About Future Housing: No Difficulty Paying Gas/Electric Bills: No Difficulty Paying for Meds: No Currently Unemployed: No Education: Associate Degree Difficulty w/ Childcare or Family Care: No Living arrangements: with family Gender identity (if verbalized by the patient): Female Spiritual care concerns: No Anes - Eval Final PreProcedure Day of Procedure 09/30/23 11:08 Patient weight: obese Heart: regular rate and rhythm Lungs: clear to auscultation Airway: Mallampati scale class II Neurological: alert and oriented Last oral intake: >/= 8 hours ASA classification: III Emergent: no Anesthetic plan: proceed Anesthesia type and monitoring: general LMA and standard monitoring Results Review: All pre-operative results and documents have been reviewed as part of the pre-operative evaluation. Informed Consent: The patient's anesthetic plan and its attendant risks and benefits were discussed with the patient/family/POA. Questions were solicited and answers provided to the satisfaction of the patient/family/POA.
--- NOTE | 2023-09-30 11:36 | WPDHPUPDATE1 ---
History and Physical Update Update Date/Time: 09/30/23 11:36 History and Physical has been reviewed, including an updated exam of the patient. There are NO changes in the patient's condition. Risks, benefits, and alternatives have been discussed and questions answered. Patient agrees to proceed with procedure.
--- NOTE | 2023-09-30 12:03 | WPDANESPNB ---
Anes - Peripheral Nerve Block Date/Time: 09/30/23 12:03 I have discussed with the patient/family/POA the placement of a peripheral nerve block for post-operative pain management, including associated risks, benefits, complications, and side effects. Alternative methods of post-operative analgesia were detailed. Questions were solicited and answers provided to the satisfaction of the patient/family/POA. Time-Out: A pre-procedural Time-Out was completed immediately before starting the procedure and confirmed: Patient Identification, Site, Procedure, Patient Position and the Availability of Requisite Equipment. Clinical Indications: Acute post-operative pain management requested by the operative surgeon. Nerve Block Insertion Note Anes-nerve block: adductor canal left Patient position: supine Skin prep: chlorhexidine Needle: 22 gauge, stimulating, insulated echogenic needle. Needle length: 80 mm Technique: ultrasound Injectate: bupivacaine 0.5% with epi 5 mcg/ml (30cc no epi) Observations: tolerated well Complications: none Procedure start time:: 1155 Procedure end time:: 115
[2023-09-30] MEDS: ceFAZolin 2 GM/D5W 50 ML 2 GM/50 ML BAG IVPB ×2 (12:06→20:06)
[2023-09-30] MEDS: fentaNYL CITRATE INJ (*CRX) 100 MCG/2 ML VIAL 25 MCG IV PUSH ×4 (14:35→15:24)
--- NOTE | 2023-09-30 14:55 | P.OP_ITS ---
Procedure Note - Detailed Date of Procedure 09/30/23 Pre-op Diagnosis Primary osteoarthritis left knee Post-op Diagnosis Same Procedure Performed Total knee arthroplasty, left Surgeon Lucian Head MD Internal Grinder Set Up Operator Blanca Roblero PA-C Anesthesia General and Regional (Subsartorial block.) Findings Severe degenerative changes. Large femoral osteophytes. Excellent bone quality. Mod PCL release. No other significant releases. 5 degrees slope to improve flexion. TRADE TO REBATE -1 personalized instruments used. Press-fit knee implants. Description of Procedure Preoperative antibiotics were given. The limb was prepped and draped in the u sual sterile fashion with a well-padded tourniquet high on the thigh. The limb was exsanguinated and the tourniquet inflated to 300 mmHg. A longitudinal incision was created just medial to the patella. A trivector approach to the knee was performed. Arthrotomy was taken down through the joint capsule. No significant releases were initially taken. The femur was exposed and the F1 jig was applied. The coring tool was used to remove the cartilage for the F2 jig to sit flush with the bone. The jig was pinned and the distal cut carefully taken. Caliper measurements confirmed appropriate bony resections according to the preoperative templated plan. The F4 cutting jig for the femur was applied, at the standard rotation. The AP and chamfer cuts were taken. The tibia was prepared using the T1 jig, after removing cartilage for the jig contact points. Proper alignment was checked with the alignment delia. The tibia was cut using the T1u guide. Gap balancing was performed. Gap measurements were taken and the knee was trialed. Excellent alignment and soft tissue balancing was confirmed. The posterior cruciate ligament was recessed along the proximal tibia. The patella was cut for resurfacing. Three lug holes were drilled. Meniscal remnants were removed. The trial components were assembled. Excellent range of motion and proper soft tissue balancing were confirmed throughout the full range of motion. Patellar tracking was excellent. The knee was copiously irrigated periodically throughout the procedure. The real implants were impacted into position. Final trialing performed. No further releases. The wound was closed in layers with interrupted #1 Vicryl suture, #1 strata fix suture, 2- 0 strata fix suture, 3-0 strata fix suture. Steri-Strips placed on the skin with the knee flexed. Sterile bulky dressing applied. The patient was brought to the recovery room in stable condition. There were no complications. Physician special education educational assistant, Blanca Roblero PA-C, required for surgery; including patient positioning, draping, tissue retraction, maintaining instrument position, wound closure, and dressing placement. Implants Styker Triathon Cruciate Retaining Femoral size 2. Tritanium Tibial Component size 3. X3 tibial bearing insert-CR. 10mm. Asymmetric Patella A32mm. Estimated Blood Loss -100.0 Tourniquet Time 90 Drains No Complications No immediate complications Condition Stable Disposition PACU [facility] Billing Surgery - Charge Forward: Surgery Billing
[2023-09-30] MEDS: ONDANSETRON INJ 4 MG/2 ML VIAL IV PUSH ×2 (15:15→15:39)
--- NOTE | 2023-09-30 16:20 | ADMGEN ---
This patient, Fuad Mata, was admitted to Medical Room 247-. Patient/family oriented to hospital policies and general routines including ID bracelet, bed and alarms, visiting hours, pain management, procedures, bathroom and other care routines, personal items, smoking policy, room service/diet, and visiting hours. Information on how to activate the Rapid Response Team has been discussed. Patient/Family are encouraged to report perceived risks to care and to ask questions if they do not understand what they are told or what they should do.
[2023-09-30] MEDS: ASPIRIN 81 MG ENTERIC TABLET PO (17:48)
[2023-09-30] MEDS: SENNA/DOCUSATE SODIUM TABLET 2 TAB PO (17:49)
[2023-09-30] MEDS: MELOXICAM 7.5 MG TABLET PO (17:49)
[2023-09-30] MEDS: oxyCODONE HCL (*CRX) 5 MG TAB IR PO ×2 (17:49→23:45)
[2023-09-30] MEDS: oxyCODONE HCL (*CRX) 5 MG TAB IR 10 MG PO (20:05)
[2023-09-30] MEDS: LORazepam (*CRX) 1 MG TABLET PO (23:50)
[2023-10-01 01:40] VITALS: BP 117/69; PULSE 87; RESP 17; TEMP 36.3; O2SAT 98
[2023-10-01] MEDS: ceFAZolin 2 GM/D5W 50 ML 2 GM/50 ML BAG IVPB ×2 (05:20→11:16)
[2023-10-01] MEDS: ACETAMINOPHEN 500 MG TABLET 1000 MG PO ×2 (05:21→11:16)
[2023-10-01] MEDS: LEVOTHYROXINE SODIUM 88 MCG TABLET PO (05:21)
[2023-10-01] MEDS: oxyCODONE HCL (*CRX) 5 MG TAB IR 10 MG PO ×3 (06:44→14:55)
[2023-10-01 07:08] LABS: Anion Gap 10 mmol/L (8-16); Blood Urea Nitrogen 16 mg/dL (7-17); Calcium 9.4 mg/dL (8.4-10.2); Carbon Dioxide 28 mmol/L (22-30); Chloride 99 mmol/L (98-107); Estimated CRCL calculation 100 ml/min; Estimated Glomerular Filt Rate > 60; Glucose 142 mg/dL (65-110); Potassium 4.2 mmol/L (3.4-5.0); Sodium 137 mmol/L (137-145)
[2023-10-01 07:23] LABS: Basophils Percent Auto 0.2 % (0.2-1.2); Eosinophils Percent Auto 0.2 % (0-4.4); Hematocrit 33.9 % (37.0-47.0); Hemoglobin 11.2 g/dL (12.0-15.0); Immature Granulocyte Absolute 0.06 K/mm3 (0.00-0.031); Immature Granulocyte Percent A 0.5 % (0-0.5); Lymphocytes Absolute Auto 2.17 K/mm3 (0.9-3.2); Lymphocytes Percent Auto 16.4 % (18.3-44.2); Mean Corpuscular Hemoglobin 30.9 pg (26-34); Mean Corpuscular Volume 93.6 fl (80-100); Mean Platelet Volume 9.6 fl (7.4-10.4); Monocytes Absolute Auto 1.1 K/mm3 (0.1-0.6); Monocytes Percent Auto 8.5 % (2.6-8.5); Neutrophils Absolute Auto 9.8 K/mm3 (1.3-6.7); Neutrophils Percent Auto 74.2 % (45.5-73.1); Platelet Count Result 273 k/mm3 (150-375); Red Blood Count 3.62 M/mm3 (4.2-5.4); Red Cell Distribution Width 12.8 % (11.5-14.5); White Blood Count 13.2 K/mm3 (4.5-10.0)
--- NOTE | 2023-10-01 07:26 | P.PNAN_ITS ---
Anes - Prog Note Post-Op Date/Time: 10/01/23 07:26 Cardiovascular status: normal Respiratory status: normal Airway patency: baseline Mental status: baseline Post-Op hydration status: normal Vital Signs: Last Vital Signs Temp 36.3 C L 10/01/23 01:40 Pulse 87 10/01/23 01:40 Resp 17 10/01/23 01:40 BP 117/69 10/01/23 01:40 Pulse Ox 98 10/01/23 01:40 O2 Del Method Room Air 09/30/23 19:58 O2 Flow Rate 2 09/30/23 15:45 Pain Score (VAS): 3 I/O: Intake & Output 09/30/23 09/30/23 10/01/23 15:59 23:59 07:59 Intake Total 350 270 50 Balance 350 270 50 Laboratory Tests 10/01/23 07:03 10/01/23 05:53 09/30/23 10/01/23 10/01/23 10:29 05:53 07:03 WBC 8.1 13.2 H RBC 3.62 L Hgb 11.2 L Hct 33.9 L MCV 93.6 MCH 30.9 MCHC 33.0 RDW 12.8 Plt Count 273 MPV 9.6 Immature Gran % (Auto) 0.5 Neut % (Auto) 74.2 H Lymph % (Auto) 16.4 L Atlantic % (Auto) 8.5 Eos % (Auto) 0.2 Baso % (Auto) 0.2 Lymph # (Auto) 2.17 Atlantic # (Auto) 1.1 H Eos # (Auto) 0.0 Baso # (Auto) 0.0 Abs Immat Gran (auto) 0.06 H Absolute Neuts (auto) 9.8 H Absolute Nucleated RBC 0.0 Nucleated RBC % 0.0 Sodium 137 Potassium 4.2 Chloride 99 Carbon Dioxide 28 Anion Gap 10 BUN 16 Creatinine 0.70 Estim Creat Clear Calc 100 Estimated GFR > 60 Glucose 142 H Calcium 9.4 Blood Type A Negative Antibody Screen Negative Post-procedural complaints: none Patient Feedback: Patient satisfied with anesthetic care.
[2023-10-01] MEDS: SENNA/DOCUSATE SODIUM TABLET 2 TAB PO (08:18)
[2023-10-01] MEDS: predniSONE 5 MG TABLET PO (08:18)
[2023-10-01] MEDS: PANTOPRAZOLE 40 MG TABLET PO (08:18)
[2023-10-01] MEDS: ASPIRIN 81 MG ENTERIC TABLET PO (08:18)
[2023-10-01] MEDS: polyethylene glycoL 3350 17 GM POWD.PACK PO (08:19)
[2023-10-01] MEDS: MELOXICAM 7.5 MG TABLET PO (08:20)
[2023-10-01] MEDS: CYCLOBENZAPRINE HCL 10 MG TABLET PO (08:25)
[2023-10-01] MEDS: ONDANSETRON INJ 4 MG/2 ML VIAL IV PUSH (08:50)
[2023-10-01 09:00] VITALS: BP 138/76; PULSE 71; RESP 16; TEMP 35.7; O2SAT 100
--- NOTE | 2023-10-01 10:25 | PM.DS ---
DS: Admitting Diagnosis Discharge Date 10/01/23 Admitting Diagnosis OA knee Left DS: Discharge Diagnosis Discharge Diagnosis (1) Status post total knee replacement: Code(s): Z96.659 - Presence of unspecified artificial knee joint Status: Acute Assessment and Plan: Postop day 1: Left total knee arthroplasty. Patient tolerated procedure well. No complications. Pain manageable with pain medication. No numbness or tingling. We had a lengthy discussion regarding postoperative wound care, limitations, expectations, and exercises. Patient shows good understanding. He has had initial physical therapy and is tolerating it well. DVT prophylaxis: 81 mg baby aspirin b.i.d. for 14 days. Pain medication: Percocet. Patient has followup appointment with Dr. Head in 3 weeks. DS: Summary Hospital Course Reason for hospitalization: Total knee arthroplasty Hospital Course: Patient tolerated procedure well. Has had initial PT/OT. Status at Discharge Functional status at discharge: uses cane/walker Overall status at discharge: patient is progressing back to baseline Time Spent with Patient Time attestation: Total time spent providing and/or coordinating discharge services: Exam Narrative: 48-year-old overweight female. Resting comfortably in bed. Alert and oriented x3. No acute distress. Wearing compression socks bilaterally. Dressing intact and dry without drainage. Mild swelling. No ecchymosis. No erythema. No hematoma. Range of motion limited due to pain. Calf nontender. Neurologic status intact. No varicosities. Distal pulses palpable. DS: Data Data Completed and Pending Labs on day of discharge: Labs from last 24 hours 10/01/23 10/01/23 09/30/23 07:03 05:53 10:29 WBC 13.2 H 8.1 RBC 3.62 L Hgb 11.2 L Hct 33.9 L MCV 93.6 MCH 30.9 MCHC 33.0 RDW 12.8 Plt Count 273 MPV 9.6 Immature Gran % (Auto) 0.5 Neut % (Auto) 74.2 H Lymph % (Auto) 16.4 L Cannon % (Auto) 8.5 Eos % (Auto) 0.2 Baso % (Auto) 0.2 Lymph # (Auto) 2.17 Cannon # (Auto) 1.1 H Eos # (Auto) 0.0 Baso # (Auto) 0.0 Abs Immat Gran (auto) 0.06 H Absolute Neuts (auto) 9.8 H Absolute Nucleated RBC 0.0 Nucleated RBC % 0.0 Sodium 137 Potassium 4.2 Chloride 99 Carbon Dioxide 28 Anion Gap 10 BUN 16 Creatinine 0.70 Estim Creat Clear Calc 100 Estimated GFR > 60 Glucose 142 H Calcium 9.4 Blood Type A Negative Antibody Screen Negative Discharge Plan Discharge Patient Disposition: Home, Self-Care Discharge Instructions: See green instruction sheets Patient Instructions: Pain Management (GEN) Stand Alone Forms: General Discharge Instructions Follow-up/Referrals: Blanca Roblero PA [Physician Steam Frame Operator] - Discharge Medications: New meloxicam 15 mg tablet 15 mg PO DAILY Qty: 30 0RF Rx Instructions: Cut in half. Take 1/2 in morning and 1/2 at night. Take with food. Stop if stomach upset. aspirin 81 mg tablet,delayed release (DR/EC) 81 mg PO BID 14 Days Qty: 28 0RF oxycodone-acetaminophen 5-325 mg tablet 1 - 2 tablet PO Q4-6H MDD 6 PRN (Reason: pain) Qty: 30 0RF ondansetron 4 mg tablet,disintegrating 4 mg PO Q8H PRN (Reason: nausea and vomiting) Qty: 30 0RF prednisone 5 mg tablet 5 mg PO DAILY 21 Days Qty: 21 0RF Continued lorazepam 1 mg tablet 1 mg PO PRN PRN (Reason: Insomnia) omeprazole 20 mg Capsule,Delayed Release(Dr/Ec) 20 mg PO DAILY ibuprofen 400 mg Tablet 400 mg PO Q6H PRN (Reason: Pain) levothyroxine 88 mcg tablet 88 mcg PO DAILY progesterone micronized 100 mg capsule 100 mg PO HS Discontinued hydrocodone-acetaminophen 5-325 mg tablet 1 tablet PO Q4H PRN (Reason: pain) Qty: 20 0RF
[2023-10-01 13:17] VITALS: BP 133/77; PULSE 82; RESP 16; TEMP 36.4; O2SAT 97
== END 2023-10-01 16:00 | disposition home or self-care (01) ==
LOC: ANHSURGERY 12:07 → ANH2MED 17:10
PROVIDERS: Physician Assistant Surgical; PCP Physician Assistant; Visit Provider Orthopaedic Surgery
PROC: (CPT 27447; principal; 2023-09-30 12:00)
DX: M17.12 Unilateral primary osteoarthritis, left knee (principal); E03.9 Hypothyroidism, unspecified; E66.9 Obesity, unspecified; Z68.35 Body mass index [BMI] 35.0-35.9, adult; Z87.891 Personal history of nicotine dependence
CPT/HCPCS: 27447; 36415; 73560; 80048; 80307; 82040; 82565; 82947; 85025; 85048; 86850; 86900; 86901; 87081; 97110; 97116; 97161; 97165; 97530; 97535; A9270; C1713; C1776; J0171; J0690; J1100; J1885; J2250; J2270; J2405; J2704; J2795; J3010; J7120; J7512

== ENCOUNTER → 2023-10-22 13:19 | Outpatient (CLI) | payer OTHER, SELFPAY ==
--- NOTE | ~2023-10-22 | XR_ITS ---
EXAM: XR knee LT min 4V DATE: 10/22/2023 13:36 HISTORY: Z47.1 - Aftercare following joint replacement surgery . COMPARISON: None available. FINDINGS: Mildly decreased mineralization. No fracture or dislocation. No lytic or blastic lesion. U ncomplicated left knee arthroplasty hardware. Small volume left knee joint fluid. No erosion or perio steal change. Soft tissues within normal limits. IMPRESSION: Left total knee arthroplasty, no radiographic evidence of hardware-related complication. Small left knee joint effusion. Reviewed, dictated and finalized at location K. OSITE LAMINATOR IMPRESSION: Left total knee arthroplasty, no radiographic evidence of hardware- related complication. Small left knee joint effusion.
== END ==
PROVIDERS: PCP Orthopaedic Surgery; Visit Provider Orthopaedic Surgery
DX: M25.462 Effusion, left knee (principal); Z47.1 Aftercare following joint replacement surgery; Z96.652 Presence of left artificial knee joint
CPT/HCPCS: 73564

== ENCOUNTER 2023-11-26 12:30 | Outpatient (CLI) | payer OTHER, SELFPAY ==
--- NOTE | ~2023-11-26 | CT_ITS ---
EXAMINATION: CT LE RT wo con DATE: 11/26/2023 12:49 INDICATION: Unilateral primary osteoarthritis of right knee. TECHNIQUE: Computed tomography (CT) of the right lower limb was performed without intravenous contras t. Automated exposure control and iterative reconstruction technique were employed. The dose-length p roduct was 1732.88 mGy-cm. COMPARISON: None FINDINGS: Bone alignment is normal. No fracture. There is mild right hip osteoarthritis. Right knee d emonstrates severe osteoarthritis of the medial compartment and mild osteoarthritis of the lateral an d patellofemoral compartments. No knee joint effusion. There are loose bodies in the anterior interco ndylar notch. IMPRESSION: 1. Severe right knee osteoarthritis with loose bodies. 2. Mild right hip osteoarthritis. Reviewed, dictated and finalized at location A. [employer]INGS
== END 2023-11-26 12:31 | disposition home or self-care (01) ==
LOC: ANHIMG 12:30
PROVIDERS: PCP Physician Assistant; Visit Provider Orthopaedic Surgery
DX: M17.11 Unilateral primary osteoarthritis, right knee (principal); M16.11 Unilateral primary osteoarthritis, right hip; M23.41 Loose body in knee, right knee
CPT/HCPCS: 73700

== ENCOUNTER 2024-01-30 12:02 | Outpatient (CLI) | payer OTHER, SELFPAY ==
[2024-01-30 13:23] LABS: Basophils Percent Auto 0.4 % (0.2-1.2); Eosinophils Absolute Auto 0.2 K/mm3 (0-0.3); Eosinophils Percent Auto 2.5 % (0-4.4); Hematocrit 38.1 % (37.0-47.0); Hemoglobin 12.1 g/dL (12.0-15.0); Immature Granulocyte Absolute 0.02 K/mm3 (0.00-0.031); Immature Granulocyte Percent A 0.2 % (0-0.5); Lymphocytes Absolute Auto 3.05 K/mm3 (0.9-3.2); Lymphocytes Percent Auto 36.7 % (18.3-44.2); Mean Corpuscular HGB Conc 31.8 g/dl (32-36); Mean Corpuscular Hemoglobin 29.9 pg (26-34); Mean Corpuscular Volume 94.1 fl (80-100); Mean Platelet Volume 9.8 fl (7.4-10.4); Monocytes Absolute Auto 0.6 K/mm3 (0.1-0.6); Monocytes Percent Auto 7.6 % (2.6-8.5); Neutrophils Absolute Auto 4.4 K/mm3 (1.3-6.7); Neutrophils Percent Auto 52.6 % (45.5-73.1); Platelet Count Result 297 k/mm3 (150-375); Red Blood Count 4.05 M/mm3 (4.2-5.4); Red Cell Distribution Width 12.5 % (11.5-14.5); White Blood Count 8.3 K/mm3 (4.5-10.0)
[2024-01-30 13:34] LABS: Urine Cotinine NEGATIVE
[2024-01-30 14:19] LABS: MRSA (PCR) NOT DETECTED (NOT DETECTE)
[2024-01-30 19:05] LABS: Albumin Level 4.4 g/dL (3.5-5.1); Estimated Glomerular Filt Rate > 60; Glucose 118 mg/dL (65-110)
[2024-01-30 19:53] LABS: Hemoglobin A1C 5.6 % (<5.7)
== END 2024-01-30 12:03 | disposition home or self-care (01) ==
PROVIDERS: PCP Physician Assistant; Visit Provider Orthopaedic Surgery
DX: M17.11 Unilateral primary osteoarthritis, right knee (principal)
CPT/HCPCS: 80307; 82040; 82565; 82947; 83036; 85025; 87641

== ENCOUNTER 2024-02-11 06:51 | Outpatient (CLI) | payer OTHER, SELFPAY ==
--- NOTE | ~2024-02-11 | MM_ITS ---
EXAMINATION: MM screening [facility] BI w herbert HISTORY: Screening TECHNIQUE: Craniocaudal and mediolateral oblique 3-D tomosynthesis images were obtained and synthetic 2-D images were generated. CAD analysis was submitted and interpreted. COMPARISON: Comparison to multiple prior studies sequentially, with oldest reviewed study dated 10/2020. BREAST PARENCHYMAL COMPOSITION: There are scattered areas of fibroglandular density. FINDINGS: There is no evidence of suspicious mass, calcification, or architectural distortion to sugg est malignancy in either breast. There has been no suspicious interval change. IMPRESSION: 1. No mammographic evidence of malignancy. 2. Recommend routine screening mammography in one year. BI-RADS Category 1: Negative Reviewed, dictated and finalized at location B.
== END 2024-02-11 06:52 ==
PROVIDERS: PCP Physician Assistant; Visit Provider Obstetrics & Gynecology
DX: Z12.31 Encounter for screening mammogram for malignant neoplasm of breast (principal)
CPT/HCPCS: 77063; 77067

== ENCOUNTER 2024-02-13 00:21 | Day surgery (SDC) | payer OTHER, SELFPAY ==
[2024-01-30 11:36] VITALS: BMI 36.3
--- NOTE | 2024-01-30 11:50 | PC.NURSE ---
Report to the Outpatient Waiting Room, entrance under the green pavilion located off [address], at time _0830_ on date _02/13/24_. Planned Procedure Time: _1030_. Time changes happen often and if your time is changed the preop area will call you the afternoon before. - You and your visitor will be asked to self-screen and do not enter if you have any COVID symptoms. - A mask is optional within the hospital at this time. Patients may have clear liquids (water, carbonated beverages, clear teas, apple juice) until 3 hours prior to surgery (0730 AM) with a maximum of 20 ounces. - No food from midnight until time of surgery - Infants may have breast milk until 4 hours before surgery, infant formula 6 hours prior to surgery. - Children will be allowed to drink immediately following surgery. If applicable, please bring a bottle or sippy cup to assist with drinking. Juice, water, soda, and popsicles are readily available. For infants on formula, please bring formula the day of surgery. Pacifiers are allowed. Take the following medications with a SIP of water the morning of surgery: _LEVOTHYROXINE, & LORAZEPAM, TRAMADOL IF NEEDED_ DO NOT STOP ANY OF YOUR OTHER PRESCRIPTION MEDICATIONS PRIOR TO SURGERY ?EXCEPT THE FOLLOWING Medications to discontinue per DR. YOST - _IBUPROFEN 7 DAYS PRIOR TO SURGERY, Date to take last dose 02/05/24_ Please no make-up, nail chinese, hairspray, perfume, deodorant, or body powder the day of surgery. No jewelry (including any body piercings) or valuables the day of surgery, leave them at home. Please take a shower or bath the night before, or the morning of, surgery with an antibacterial soap. Wear comfortable, loose fitting clothing. Children are encouraged to wear pajamas. - Jewelry must be removed prior to entering the operating room. Rings and piercings that are not removed may be cut off. - The hospital will not accept responsibility for valuables. - Please leave all valuables, including medications, at home the day of surgery. If you are going home after surgery, a licensed power screwdriver operator must drive you home. - NO public transportation without another adult if you receive anesthesia. - We recommend that an adult stay with you for 24 hours following discharge. - We also recommend that you do not drive, make important decision, drink alcoholic beverages, or take any drugs that were not prescribed by your health care provider for at least 24 hours after your discharge time. For Pediatric surgeries, we recommend two adults accompany the child home. Follow any additional instructions given to you from your surgeon. If you or anyone in your household have experienced Covid symptoms in the past week, please notify your surgeon or the nurse liaison at the phone number below for possible testing. Telephone instructions given to ____PT and asked if any additional questions and then verbalized understanding. Patient advised to call surgeon office or pre surgery nurse liaison [phone] if any additional questions.
[2024-02-13] VITALS (12 sets, daily range): BP systolic 124–157; BP diastolic 70–98; PULSE 79–105; RESP 12–18; TEMP 36.1–36.9; O2SAT 95–100
--- NOTE | ~2024-02-13 | XR_ITS ---
EXAMINATION: [id number] DATE: 02/13/2024 10:20 INDICATION: Total right knee arthroplasty. Postop. TECHNIQUE: 2 views of right knee were obtained. COMPARISON: Right knee radiographs 08/23/2023 FINDINGS: There is a total right knee arthroplasty with patellar resurfacing in near-anatomic alignme nt. No fracture. There is gas in the soft tissues and knee joint, consistent with recent surgery. IMPRESSION: 1. Total right knee arthroplasty in near-anatomic alignment. Reviewed, dictated and finalized at location E.
[2024-02-13] MEDS: TRANEXAMIC ACID 1,000MG/ISO100 1,000 MG/100 ML BAG 200 MG IVPB (07:00)
[2024-02-13] MEDS: ACETAMINOPHEN 500 MG TABLET 1000 MG PO ×4 (07:00→23:43)
--- NOTE | 2024-02-13 07:12 | P.PNAN_ITS ---
Anes - Initial Pre Proc Eval Procedure: Operation Date: 02/13/24 10:30 Proposed Procedures p Right Custom Total Knee Arthroplasty - Lucian Head MD Date/Time: 02/13/24 07:12 Surgeon: Lucian Head MD Pre Op Diagnosis: primary oa right knee Patient Data Age: 48 Gender: F Height: 1.65 m Weight: 99.09 kg Allergies Allergy/AdvReac Type Severity Reaction Status Date / Time No Known Allergies Allergy Verified 02/13/24 07:17 Home Medications Medication Instructions Recorded Confirmed Type levothyroxine 88 mcg tablet 88 mcg PO DAILY 08/24/20 02/13/24 History progesterone micronized 100 mg 200 mg PO HS 01/14/23 01/30/24 History capsule ibuprofen 400 mg tablet 400 mg PO Q6H PRN Pain 09/11/23 01/30/24 History lorazepam 1 mg tablet 1 mg PO PRN PRN Insomnia/Anxiety 09/11/23 01/30/24 History omeprazole 20 mg capsule,delayed 20 mg PO DAILY PRN ACID REFLEX 09/11/23 01/30/24 History release tramadol 50 mg tablet 50 mg PO Q6H PRN pain #30 tabs 01/23/24 01/30/24 Rx Patient hx anesthesia problems: none Family hx anesthesia problems: none Results Review: All pre-operative results and documents have been reviewed as part of the pre- operative evaluation. [facility] Past Medical History Medical History Hypothyroidism Leiomyoma Obesity MARTHA (obstructive sleep apnea) Smoker Surgical History Surgical History H/O: hysterectomy History of cervical discectomy History of fusion of cervical spine History of nasal septoplasty History of total left knee replacement (~09/30/23) -1 Family History Family History Mother Asthma Father Carcinoma of colon Other Diabetes mellitus Hypertension Social History Social History Years smoked: 20 Smoking status: Former smoker Tobacco type: cigarettes Second hand tobacco smoke exposure: No Additional smoking assessment comments: STATES WAS A SOCIAL SMOKER-10 CIGS/DAY, QUIT 07/12/23 Alcohol intake: current Drinks per week: 2 Alcohol use details: 3/MONTH Substance use: never Substance use type: does not use Do You Feel Safe in your Home?: No Lack of Transportation: No Lack of Food: Never True Current Housing: I Have Housing Concerned About Future Housing: No Difficulty Paying Gas/Electric Bills: No Difficulty Paying for Meds: No Currently Unemployed: No Education: Associate Degree Difficulty w/ Childcare or Family Care: No Living arrangements: with family Gender identity (if verbalized by the patient): Female Spiritual care concerns: No Anes - Eval Final PreProcedure Day of Procedure 02/13/24 07:12 Patient weight: obese Heart: regular rate and rhythm Lungs: clear to auscultation Airway: Mallampati scale class II and special considerations (Hx of c spine fusion. ) poor extension Neurological: alert and oriented Last oral intake: >/= 8 hours ASA classification: III Emergent: no Anesthetic plan: proceed Anesthesia type and monitoring: general LMA and standard monitoring Results Review: All pre-operative results and documents have been reviewed as part of the pre- operative evaluation. MARTHA on CPAP, alternating pressure. Hx of C spine fusion in the past. Informed Consent: The patient's anesthetic plan and its attendant risks and benefits were discussed with the patient/family/POA. Questions were solicited and answers provided to the satisfaction of the patient/family/POA.
--- NOTE | 2024-02-13 07:15 | WPDHPUPDATE1 ---
History and Physical Update Update Date/Time: 02/13/24 07:15 History and Physical has been reviewed, including an updated exam of the patient. There are NO changes in the patient's condition. Risks, benefits, and alternatives have been discussed and questions answered. Patient agrees to proceed with procedure.
[2024-02-13] MEDS: LACTATED RINGERS 1,000 ML 30 ML IV CONT ×2 (07:17→11:01)
[2024-02-13] MEDS: ceFAZolin 2 GM/D5W 50 ML 2 GM/50 ML BAG IVPB ×3 (07:37→23:44)
--- NOTE | 2024-02-13 07:54 | WPDANESPNB ---
Anes - Peripheral Nerve Block Date/Time: 02/13/24 07:54 I have discussed with the patient/family/POA the placement of a peripheral nerve block for post-operative pain management, including associated risks, benefits, complications, and side effects. Alternative methods of post-operative analgesia were detailed. Questions were solicited and answers provided to the satisfaction of the patient/family/POA. Time-Out: A pre-procedural Time-Out was completed immediately before starting the procedure and confirmed: Patient Identification, Site, Procedure, Patient Position and the Availability of Requisite Equipment. Clinical Indications: Acute post-operative pain management requested by the operative surgeon. Nerve Block Insertion Note Anes-nerve block: adductor canal right Patient position: supine Skin prep: chlorhexidine Needle: 22 gauge, stimulating, insulated echogenic needle. Needle length: 80 mm Technique: ultrasound Injectate: other (Bupiv 0.5%, 20 mls. ) Observations: tolerated well Complications: none Procedure start time:: Procedure end time::
[2024-02-13] MEDS: SODIUM CHLORIDE 0.9% IV 37.7 ML, MORPHINE SULFATE INJ (*CRX) 2 MG, ROPivacaine HCL 1% 2... INFILTRATE (08:21)
[2024-02-13] MEDS: fentaNYL CITRATE INJ (*CRX) 100 MCG/2 ML VIAL 25 MCG IV PUSH ×4 (10:38→11:32)
[2024-02-13] MEDS: predniSONE 5 MG TABLET PO (12:23)
[2024-02-13] MEDS: LEVOTHYROXINE SODIUM 88 MCG TABLET PO (12:23)
[2024-02-13] MEDS: MELOXICAM 7.5 MG TABLET PO ×2 (12:23→17:03)
[2024-02-13] MEDS: polyethylene glycoL 3350 17 GM POWD.PACK PO (12:23)
[2024-02-13] MEDS: PANTOPRAZOLE 40 MG TABLET PO (12:23)
[2024-02-13] MEDS: SENNA/DOCUSATE SODIUM TABLET 2 TAB PO ×2 (12:23→17:03)
[2024-02-13] MEDS: oxyCODONE HCL (*CRX) 5 MG TAB IR 10 MG PO ×2 (12:24→20:26)
[2024-02-13] MEDS: ASPIRIN 81 MG ENTERIC TABLET PO ×2 (12:25→17:03)
--- NOTE | 2024-02-13 12:36 | W.PM.PROC2 ---
Procedure Note - Detailed Date of Procedure 02/13/24 Pre-op Diagnosis primary oa right knee Post-op Diagnosis Same Procedure Performed Total knee arthroplasty, right Surgeon Lucian Head MD Wire Rope Sling Maker Blanca Roblero PA-C Anesthesia General and Regional (Subsartorial block.) Findings Excellent bone quality. No ligament releases required. Custom implants with optimal fit. Description of Procedure Preoperative antibiotics were given. The limb was prepped and draped in the usual sterile fashion with a well-padded tourniquet high on the thigh. The limb was exsanguinated and the tourniquet inflated to 300 mmHg during exposure and cementation. A longitudinal incision was created just medial to the patella. A subvastus approach to the knee was performed. Arthrotomy was taken down through the joint capsule. No significant releases were initially taken. The femur was exposed and the F1 jig was applied. The coring tool was used to remove the cartilage for the F2 jig to sit flush with the bone. The jig was pinned and the distal cut carefully taken. Caliper measurements confirmed appropriate bony resections according to the preoperative templated plan. The F4 cutting jig for the femur was applied, at the standard rotation. The AP and anterior chamfer cuts were taken. The F5 jig was applied and the posterior chamfer cuts were taken. The tibia was prepared using the T1 jig, after removing cartilage for the jig contact points. Proper alignment was checked with the alignment delia. The tibia was cut using the T1u guide. Gap balancing was performed. Gap measurements were taken and the knee was trialed. Excellent alignment and soft tissue balancing was confirmed. The posterior cruciate ligament was recessed along the proximal tibia. The patella was cut for resurfacing. Three lug holes were drilled. Meniscal remnants were removed. The trial components were assembled. Excellent range of motion and proper soft tissue balancing were confirmed throughout the full range of motion. Patellar tracking was excellent. The knee was copiously irrigated periodically throughout the procedure. The real implants were cemented into position. Excess cement was carefully removed. The wound was closed in layers with interrupted #1 Vicryl suture, 2-0 strata fix suture, 0 strata fix suture, 2-0 strata fix suture. Steri-Strips placed on the skin with the knee flexed. Sterile bulky dressing applied. The patient was brought to the recovery room in stable condition. There were no complications. Physician assistant manager retail, Blanca Roblero PA-C, required for surgery; including patient positioning, draping, tissue retraction, maintaining instrument position, cement removal, wound closure, and dressing placement. Implants [employer]form[employer] Custom total knee arthroplasty. Cemented. Cruciate retaining. 6A insert. 29 mm round patella. Estimated Blood Loss 100 Drains No Complications No immediate complications Condition Stable Disposition PACU [facility] Billing Surgery - Charge Forward: Surgery Billing
--- NOTE | 2024-02-13 12:39 | ADMGEN ---
This patient, Fuad Mata, was admitted to 3 [facility] Surg Room 302-01. Patient/family oriented to hospital policies and general routines including ID bracelet, bed and alarms, visiting hours, pain management, procedures, bathroom and other care routines, personal items, smoking policy, room service/diet, and visiting hours. Information on how to activate the Rapid Response Team has been discussed. Patient/Family are encouraged to report perceived risks to care and to ask questions if they do not understand what they are told or what they should do.
--- NOTE | 2024-02-13 13:29 | PCPTNOTE ---
Attempted therapy evaluation at 1329, requested to wait per RN as patient is going to get anti-nausea meds soon.
[2024-02-13] MEDS: ONDANSETRON INJ 4 MG/2 ML VIAL IV PUSH (13:32)
[2024-02-13] MEDS: oxyCODONE HCL (*CRX) 5 MG TAB IR PO (17:02)
[2024-02-13] MEDS: CYCLOBENZAPRINE HCL 10 MG TABLET PO (23:48)
[2024-02-13] MEDS: traMADol HCL (*CRX) 50 MG TABLET PO (23:48)
[2024-02-14] MEDS: oxyCODONE HCL (*CRX) 5 MG TAB IR 10 MG PO ×3 (00:51→09:15)
[2024-02-14 04:45] VITALS: BP 143/81; PULSE 77; RESP 18; TEMP 36.3; O2SAT 100
[2024-02-14] MEDS: ACETAMINOPHEN 500 MG TABLET 1000 MG PO (05:17)
[2024-02-14] MEDS: LEVOTHYROXINE SODIUM 88 MCG TABLET PO (05:17)
--- NOTE | 2024-02-14 08:00 | WPDANESPN ---
Anes - Prog Note Post-Op Date/Time: 02/14/24 08:00 Cardiovascular status: normal Respiratory status: normal Airway patency: baseline Mental status: baseline Post-Op hydration status: normal Vital Signs: Last Vital Signs Temp 36.3 C L 02/14/24 04:45 Pulse 77 02/14/24 04:45 Resp 18 02/14/24 04:45 BP 143/81 H 02/14/24 04:45 Pulse Ox 100 02/14/24 04:45 O2 Del Method Room Air 02/13/24 15:51 O2 Flow Rate 8 02/13/24 10:30 Pain Score (VAS): 2/10 I/O: Intake & Output 02/13/24 02/14/24 02/14/24 23:59 07:59 15:59 Intake Total 1050 Balance 1050 Post-procedural complaints: none Patient Feedback: Patient satisfied with anesthetic care.
[2024-02-14] MEDS: polyethylene glycoL 3350 17 GM POWD.PACK PO (08:45)
[2024-02-14] MEDS: SENNA/DOCUSATE SODIUM TABLET 2 TAB PO (08:45)
[2024-02-14] MEDS: ASPIRIN 81 MG ENTERIC TABLET PO (08:46)
[2024-02-14] MEDS: MELOXICAM 7.5 MG TABLET PO (08:46)
[2024-02-14] MEDS: predniSONE 5 MG TABLET PO (08:46)
[2024-02-14 08:55] LABS: Basophils Percent Auto 0.2 % (0.2-1.2); Eosinophils Percent Auto 0.2 % (0-4.4); Hematocrit 35.1 % (37.0-47.0); Hemoglobin 11.3 g/dL (12.0-15.0); Immature Granulocyte Absolute 0.06 K/mm3 (0.00-0.031); Immature Granulocyte Percent A 0.5 % (0-0.5); Lymphocytes Absolute Auto 2.96 K/mm3 (0.9-3.2); Mean Corpuscular HGB Conc 32.2 g/dl (32-36); Mean Corpuscular Hemoglobin 30.4 pg (26-34); Mean Corpuscular Volume 94.4 fl (80-100); Mean Platelet Volume 9.8 fl (7.4-10.4); Monocytes Absolute Auto 0.9 K/mm3 (0.1-0.6); Monocytes Percent Auto 7.3 % (2.6-8.5); Neutrophils Absolute Auto 8.4 K/mm3 (1.3-6.7); Neutrophils Percent Auto 67.8 % (45.5-73.1); Platelet Count Result 269 k/mm3 (150-375); Red Blood Count 3.72 M/mm3 (4.2-5.4); Red Cell Distribution Width 13.1 % (11.5-14.5); White Blood Count 12.3 K/mm3 (4.5-10.0)
[2024-02-14 09:07] LABS: Anion Gap 3 mmol/L (4-12); Blood Urea Nitrogen 15 mg/dL (7-17); Calcium 9.4 mg/dL (8.4-10.2); Carbon Dioxide 30 mmol/L (22-30); Chloride 105 mmol/L (98-107); Estimated CRCL calculation 89 ml/min; Estimated Glomerular Filt Rate > 60; Glucose 113 mg/dL (65-110); Potassium 3.8 mmol/L (3.4-5.0); Sodium 138 mmol/L (137-145)
--- NOTE | 2024-02-14 09:17 | PM.DS ---
DS: Admitting Diagnosis Discharge Date 02/14/24 Admitting Diagnosis Knee arthritis. DS: Discharge Diagnosis Discharge Diagnosis (1) Status post total right knee replacement: Code(s): Z96.651 - Presence of right artificial knee joint Status: Acute (2) Orthopedic aftercare for joint replacement: Code(s): Z47.1 - Aftercare following joint replacement surgery Status: Acute Assessment and Plan: Postop day 1: Right total knee arthroplasty. Patient tolerated procedure well. No complications. Pain manageable with pain medication. No numbness or tingling. We had a lengthy discussion regarding postoperative wound care, limitations, expectations, and exercises. Patient shows good understanding. She has had initial physical therapy and is tolerating it well. DVT prophylaxis: 81 mg baby aspirin b.i.d. for 14 days. Pain medication: Percocet. Cyclobenzaprine. Meloxicam. Prednisone. Patient has followup appointment with Dr. Head in 3 weeks. DS: Summary Hospital Course Reason for hospitalization: Total knee arthroplasty Hospital Course: Patient tolerated procedure well. Has had initial PT/OT. Status at Discharge Functional status at discharge: uses cane/walker Overall status at discharge: patient is progressing back to baseline Time Spent with Patient Time attestation: Total time spent providing and/or coordinating discharge services: Exam Narrative: 48-year-old overweight female. Resting comfortably in bed. Alert and oriented x3. No acute distress. Wearing compression socks bilaterally. Dressing intact and dry without drainage. Mild swelling. Moderate Hematoma and ecchymosis at the medial subvastus incision. No erythema. Range of motion limited due to pain. Good quad function. Calf nontender. Neurologic status intact. No varicosities. Distal pulses palpable. DS: Data Data Completed and Pending Labs on day of discharge: Labs from last 24 hours 02/14/24 08:34 WBC 12.3 H RBC 3.72 L Hgb 11.3 L Hct 35.1 L MCV 94.4 MCH 30.4 MCHC 32.2 RDW 13.1 Plt Count 269 MPV 9.8 Immature Gran % (Auto) 0.5 Neut % (Auto) 67.8 Lymph % (Auto) 24.0 [place] % (Auto) 7.3 Eos % (Auto) 0.2 Baso % (Auto) 0.2 Lymph # (Auto) 2.96 [place] # (Auto) 0.9 H Eos # (Auto) 0.0 Baso # (Auto) 0.0 Abs Immat Gran (auto) 0.06 H Absolute Neuts (auto) 8.4 H Absolute Nucleated RBC 0.000 Nucleated RBC % 0.0 Sodium 138 Potassium 3.8 Chloride 105 Carbon Dioxide 30 Anion Gap 3 L BUN 15 Creatinine 0.80 Estim Creat Clear Calc 89 Estimated GFR > 60 Glucose 113 H Calcium 9.4 Discharge Plan Discharge Patient Disposition: Home, Self-Care Discharge Instructions: See green instruction sheets Patient Instructions: How to Stop Smoking (DC) Stand Alone Forms: General Discharge Instructions Follow-up/Referrals: Blanca Roblero PA [Physician Instructional Designer] - Discharge Medications: New meloxicam 15 mg tablet 15 mg PO DAILY Qty: 30 0RF Rx Instructions: Cut in half. Take 1/2 in morning and 1/2 at night. Take with food. Stop if stomach upset. prednisone 5 mg tablet 5 mg PO DAILY 21 Days Qty: 21 0RF aspirin 81 mg tablet,delayed release (DR/EC) 81 mg PO BID 14 Days Qty: 28 0RF oxycodone-acetaminophen 5-325 mg tablet 1 - 2 tablet PO Q4-6H MDD 6 PRN (Reason: pain) Qty: 30 0RF cyclobenzaprine 5 mg tablet 5 mg PO TID PRN (Reason: muscle spasm) Qty: 20 0RF Continued lorazepam 1 mg tablet 1 mg PO PRN PRN (Reason: Insomnia/Anxiety) omeprazole 20 mg Capsule,Delayed Release(Dr/Ec) 20 mg PO DAILY PRN (Reason: ACID REFLEX) levothyroxine 88 mcg tablet 88 mcg PO DAILY progesterone micronized 100 mg capsule 200 mg PO HS Held ibuprofen 400 mg Tablet 400 mg PO Q6H PRN (Reason: Pain) Hold Instructions: Resume on 03/05/24. Hold while taking Meloxicam No Action tramadol 50 mg tablet 50 mg PO Q6H PRN (Reason: pain) Qty: 30 0RF
[2024-02-14] MEDS: ceFAZolin 2 GM/D5W 50 ML 2 GM/50 ML BAG IVPB (09:45)
--- NOTE | 2024-02-14 09:50 | PCOTNOTE ---
Attempted to see Patient for OT treatment session this A.M. Patient refused the need of OT therapy services, verbalized she just had her other knee completed 4 months ago and was leaving today. Patient was asked if she had any questions or concerns, none. Patient's also present and states he also feels comfortable.
== END 2024-02-14 11:25 | disposition home or self-care (01) ==
LOC: ANHSURGERY 05:56 → ANH3MEDSUR 11:55
PROVIDERS: Physician Assistant Surgical; PCP Physician Assistant; Visit Provider Orthopaedic Surgery
PROC: (CPT 27447; principal; 2024-02-13 07:30)
DX: M17.11 Unilateral primary osteoarthritis, right knee (principal); G89.18 Other acute postprocedural pain; E03.9 Hypothyroidism, unspecified; G47.33 Obstructive sleep apnea (adult) (pediatric); Z98.1 Arthrodesis status; Z87.891 Personal history of nicotine dependence; E66.9 Obesity, unspecified; Z68.36 Body mass index [BMI] 36.0-36.9, adult
CPT/HCPCS: 27447; 64447; 36415; 73560; 80048; 85025; 86850; 86900; 86901; 97110; 97116; 97161; 97165; A9270; C1713; C1776; J0171; J0690; J1100; J1170; J1885; J2250; J2270; J2405; J2704; J2795; J3010; J7120; J7512

== ENCOUNTER 2024-03-30 12:17 | Outpatient (CLI) | payer OTHER, SELFPAY ==
--- NOTE | ~2024-03-30 | XR_ITS ---
Right Knee Technique: AP, lateral, and sunrise views were obtained. Clinical History: Knee arthroplasty Findings: No fracture or dislocation is seen. Right knee arthroplasty in place. No hardware complicat ion seen.. Soft tissues are unremarkable. No joint effusion is seen. Impression: No acute abnormality. Right knee arthroplasty in place. Reviewed, dictated and finalized at location . Impression: No acute abnormality. Right knee arthroplasty in place.
== END 2024-03-30 12:18 ==
LOC: GOSHIMG 12:18
PROVIDERS: PCP Physician Assistant; Visit Provider Physician Assistant Surgical
DX: Z96.651 Presence of right artificial knee joint (principal)
CPT/HCPCS: 73562

== ENCOUNTER 2024-06-30 09:55 | Outpatient (CLI) | payer OTHER, SELFPAY ==
--- NOTE | ~2024-06-30 | XR_ITS ---
EXAMINATION: [id number] DATE: 06/30/2024 10:10 INDICATION: Tingling and pain in the right shoulder down the right arm. TECHNIQUE: 3 views of cervical spine were obtained. COMPARISON: Cervical spine radiographs 11/30/2017 FINDINGS: There are changes of anterior fusion procedure at C4-C5 with interbody bone graft and anter ior plate and screws. There is 2 mm retrolisthesis of C5 on C6. There is moderately decreased disc he ight at C5-C6. At C5-C6, there is severe right uncovertebral joint osteoarthritis. There is multileve l facet joint osteoarthritis, severe bilaterally at C3-C4 and C7-T1. There is mild central canal sten osis at C5-C6. No prevertebral soft tissue swelling. IMPRESSION: 1. Moderate cervical spondylosis. 2. Anterior fusion procedure at C4-C5. Reviewed, dictated and finalized at location A.
--- NOTE | ~2024-06-30 | US_ITS ---
EXAMINATION: US soft tissue head and neck DATE: 06/30/2024 10:16 INDICATION: Submandibular lump. TECHNIQUE: Multiple grayscale and Doppler ultrasound images of the head and neck were obtained. COMPARISON: None FINDINGS: There is no abnormal mass or lymphadenopathy in the patient's area of concern in the subman dibular region. The submandibular glands are normal. IMPRESSION: 1. No abnormal mass or lymphadenopathy in the patient's area of concern in the submandibular region. Reviewed, dictated and finalized at location A.
== END 2024-06-30 09:56 | disposition home or self-care (01) ==
LOC: GOSHIMG 09:56
PROVIDERS: PCP Physician Assistant; Visit Provider Physician Assistant
DX: R22.1 Localized swelling, mass and lump, neck (principal); Z98.1 Arthrodesis status; M47.892 Other spondylosis, cervical region
CPT/HCPCS: 72040; 76536

== ENCOUNTER 2025-06-30 14:14 | Outpatient (CLI) | payer OTHER, SELFPAY ==
--- OUTSIDE RECORDS SUMMARY | 2013-09-02 01:00 | XMS_ITS | Encounter Summary ---
Author Organization [facility] Healthcare Address [address] [place] [address] Care Team Providers Care Paper Carrier Name Role Phone Unavailable Primary Care Provider Unavailabl e Reason for Visit * Diagnostic Imaging (Routine) - Pending Review Specialty Diagnoses / Procedures Referred By Contac t Referred To Contact Procedures Breast Imaging Screening Outside Reference Transcribed Order, Provider Referral ID Status Reason Start Date Expiration Date V isits Requested Visits Authorized [id number] Pending Review 02/05/2025 03/07/2026 1 1 Encounter Details Date Type Department Care Team (Late st Contact Info) Description 09/02/2013 Hospital Encounter [facility] [address] [place] [id number] Social History Tobacco Use Types Packs/Day Years Used Date Smoking Tobacco: Light Smoker Smokeless Tobacco: Never Comments Unknown Sex and Gender Information Value Date Recorded Sex Assigned at Not on file Legal Sex Female 4:36 PM MANUFACTURING MECHANIC Gender Identity Not on file Sexual Orientation Not on file documented as of this encounter Plan of Treatment Not on file documented as of this encounter Procedures Procedure Name Priority Date/Time Associated Diagnosis Comments BREAST IMAGING MG SCREENING OUTSIDE REFERENCE Routine 09/02/2013 12:00 AM MANUFACTURING MECHANIC documented in this encounter Results * Breast Imaging Screening Outside Reference (09/02/2013 12:00 AM MANUFACTURING MECHANIC) Impressions RAD_[facility]MO_[facility] - 02/05/2025 1:45 PM CDT These images are for Reference purposes only and have not been reviewed by [facility] Radiology. There will be no report generated by a [facility] Radiologist. Narrative RAD_MAMMO_[facility] - 02/05/2025 1:45 PM CDT EXAMINATION: Images For Reference Purposes Only us Provider Transcribed Order IMG MAMMO PROCEDURES Final Result RAD_MAMMO_[facility] documented in this encounter Visit Diagnoses Not on filedocumented in this encounter Additional Health Concerns Infection Onset Date Last Indicated Resolved Time COVID: Suspected 12/01/2024 12/01/2024 12/01/2024 2:11 PM MANUFACTURING MECHANIC Influenza, adult 12/01/2024 12/01/2024 12/08/2024 3:06 AM MANUFACTURING MECHANIC documented as of this encounter
--- OUTSIDE RECORDS SUMMARY | 2017-03-20 | XMS_ITS | Encounter Summary ---
Author Organization [facility] Healthcare Address [address] [place] [address] Care Team Providers Care Cigar Head Pegger Name Role Phone Unavailable Primary Care Provider Unavailabl e Reason for Visit * Diagnostic Imaging (Routine) - Pending Review Specialty Diagnoses / Procedures Referred By Contac t Referred To Contact Procedures Breast Imaging Screening Outside Reference Transcribed Order, Provider Referral ID Status Reason Start Date Expiration Date V isits Requested Visits Authorized [id number] Pending Review 02/05/2025 03/07/2026 1 1 Encounter Details Date Type Department Care Team (Late st Contact Info) Description 03/20/2017 Hospital Encounter [facility]iology [facility] [address] [place] [phone] Social History Tobacco Use Types Packs/Day Years Used Date Smoking Tobacco: Light Smoker Smokeless Tobacco: Never Comments Unknown Sex and Gender Information Value Date Recorded Sex Assigned at Not on file Legal Sex Female 4:36 PM EQUIPMENT MAINTENANCE TECHNICIAN Gender Identity Not on file Sexual Orientation Not on file documented as of this encounter Plan of Treatment Not on file documented as of this encounter Procedures Procedure Name Priority Date/Time Associated Diagnosis Comments BREAST IMAGING MG SCREENING OUTSIDE REFERENCE Routine 03/20/2017 12:00 AM CDT documented in this encounter Results * Breast Imaging Screening Outside Reference (03/20/2017 12:00 AM CDT) Impressions RAD_MAMMO_[facility] - 02/05/2025 1:45 PM CDT These images are for Reference purposes only and have not been reviewed by [facility] Radiology. There will be no report generated by a [facility] Radiologist. Narrative RAD_MAMMO_[facility] - 02/05/2025 1:45 PM CDT EXAMINATION: Images For Reference Purposes Only us Provider Transcribed Order IMG MAMMO PROCEDURES Final Result Performing Organization Address City/State/[facility] Co de Phone Number RAD_M[facility] documented in this encounter Visit Diagnoses Not on filedocumented in this encounter Additional Health Concerns Infection Onset Date Last Indicated Resolved Time COVID: Suspected 12/01/2024 12/01/2024 12/01/2024 2:11 PM EQUIPMENT MAINTENANCE TECHNICIAN Influenza, adult 12/01/2024 12/01/2024 12/08/2024 3:06 AM EQUIPMENT MAINTENANCE TECHNICIAN documented as of this encounter
--- OUTSIDE RECORDS SUMMARY | 2017-04-17 | XMS_ITS | Encounter Summary ---
Author Organization [facility] Healthcare Address [address] [place] [address] Care Team Providers Care Sports Reporter Name Role Phone Unavailable Primary Care Provider Unavailabl e Reason for Visit * Diagnostic Imaging (Routine) - Pending Review Specialty Diagnoses / Procedures Referred By Contac t Referred To Contact Procedures Breast Imaging US Outside Reference Transcribed Order, Provider Referral ID Status Reason Start Date Expiration Date V isits Requested Visits Authorized [id number] Pending Review 02/05/2025 03/07/2026 1 1 Encounter Details Date Type Department Care Team (Late st Contact Info) Description 04/17/2017 Hospital Encounter [facility] Radiology [facility] [address] [place] [phone] Social History Tobacco Use Types Packs/Day Years Used Date Smoking Tobacco: Light Smoker Smokeless Tobacco: Never Comments Unknown Sex and Gender Information Value Date Recorded Sex Assigned at Not on file Legal Sex Female 4:36 PM GERIATRIC ASSISTANT Gender Identity Not on file Sexual Orientation Not on file documented as of this encounter Plan of Treatment Not on file documented as of this encounter Procedures Procedure Name Priority Date/Time Associated Diagnosis Comments BREAST IMAGING US OUTSIDE REFERENCE Routine 04/17/2017 12:00 AM CDT documented in this encounter Results * Breast Imaging US Outside Reference (04/17/2017 12:00 AM CDT) Impressions [facility]MO_[facility] - 02/05/2025 1:45 PM CDT These images are for Reference purposes only and have not been reviewed by [facility] Radiology. There will be no report generated by a [facility] Radiologist. Narrative RAD_MAMMO_[facility] - 02/05/2025 1:45 PM CDT EXAMINATION: Images For Reference Purposes Only us Provider Transcribed Order IMG MAMMO PROCEDURES Final Result [facility] documented in this encounter Visit Diagnoses Not on filedocumented in this encounter Additional Health Concerns Infection Onset Date Last Indicated Resolved Time COVID: Suspected 12/01/2024 12/01/2024 12/01/2024 2:11 PM GERIATRIC ASSISTANT Influenza, adult 12/01/2024 12/01/2024 12/08/2024 3:06 AM GERIATRIC ASSISTANT documented as of this encounter
--- OUTSIDE RECORDS SUMMARY | 2017-04-17 00:05 | XMS_ITS | Encounter Summary ---
Author Organization [facility] Healthcare Address [address] [place] [address] Care Team Providers Care Director Of Customer Service Name Role Phone Unavailable Primary Care Provider Unavailabl e Reason for Visit * Diagnostic Imaging (Routine) - Pending Review Specialty Diagnoses / Procedures Referred By Contac t Referred To Contact Procedures Breast Imaging Diagnostic Outside Reference Transcribed Order, Provider Referral ID Status Reason Start Date Expiration Date V isits Requested Visits Authorized [id number] Pending Review 02/05/2025 03/07/2026 1 1 Encounter Details Date Type Department Care Team (Late st Contact Info) Description 04/17/2017 12:05 AM CDT Hospital Encounter [facility] Radiology [facility] [address] [place] [phone] Social History Tobacco Use Types Packs/Day Years Used Date Smoking Tobacco: Light Smoker Smokeless Tobacco: Never Comments Unknown Sex and Gender Information Value Date Recorded Sex Assigned at Not on file Legal Sex Female 4:36 PM CLINICAL THERAPIST Gender Identity Not on file Sexual Orientation Not on file documented as of this encounter Plan of Treatment Not on file documented as of this encounter Procedures Procedure Name Priority Date/Time Associated Diagnosis Comments BREAST IMAGING MG DIAGNOSTIC OUTSIDE REFERENCE Routine 04/17/2017 12:05 AM CDT documented in this encounter Results * Breast Imaging Diagnostic Outside Reference (04/17/2017 12:05 AM CDT) Impressions RAD_MAMMO_[facility] - 02/05/2025 1:45 PM CDT These images are for Reference purposes only and have not been reviewed by [facility] Radiology. There will be no report generated by a [facility] Radiologist. Narrative RAD_MAMMO_[facility] - 02/05/2025 1:45 PM CDT EXAMINATION: Images For Reference Purposes Only us Provider Transcribed Order IMG MAMMO PROCEDURES Final Result [facility] documented in this encounter Visit Diagnoses Not on filedocumented in this encounter Additional Health Concerns Infection Onset Date Last Indicated Resolved Time COVID: Suspected 12/01/2024 12/01/2024 12/01/2024 2:11 PM CLINICAL THERAPIST Influenza, adult 12/01/2024 12/01/2024 12/08/2024 3:06 AM CLINICAL THERAPIST documented as of this encounter
--- OUTSIDE RECORDS SUMMARY | 2018-08-18 | XMS_ITS | Encounter Summary ---
Author Organization [facility] Healthcare Address [address] [place] [address] Care Team Providers Care E/M Engineer Name Role Phone No, Physician Primary Care Provider [phone] Reason for Visit * Diagnostic Imaging (Routine) - Pending Review Specialty Diagnoses / Procedures Referred By Contac t Referred To Contact Procedures Breast Imaging Screening Outside Reference Transcribed Order, Provider Referral ID Status Reason Start Date Expiration Date V isits Requested Visits Authorized [id number] Pending Review 02/05/2025 03/07/2026 1 1 Encounter Details Date Type Department Care Team (Late st Contact Info) Description 08/18/2018 Hospital Encounter [facility] Radiology [facility] [address] [place] [phone] Social History Tobacco Use Types Packs/Day Years Used Date Smoking Tobacco: Light Smoker Smokeless Tobacco: Never Comments Unknown Sex and Gender Information Value Date Recorded Sex Assigned at Not on file Legal Sex Female 4:36 PM FURNACE OPERATOR OIL OR GAS Gender Identity Not on file Sexual Orientation Not on file documented as of this encounter Plan of Treatment Not on file documented as of this encounter Procedures Procedure Name Priority Date/Time Associated Diagnosis Comments BREAST IMAGING MG SCREENING OUTSIDE REFERENCE Routine 08/18/2018 12:00 AM CDT documented in this encounter Results * Breast Imaging Screening Outside Reference (08/18/2018 12:00 AM CDT) Impressions RAD_MAMMO_[facility] - 02/05/2025 1:45 PM CDT These images are for Reference purposes only and have not been reviewed by [facility] Radiology. There will be no report generated by a [facility] Radiologist. Narrative RAD_MAMMO_[facility] - 02/05/2025 1:45 PM CDT EXAMINATION: Images For Reference Purposes Only us Provider Transcribed Order IMG MAMMO PROCEDURES Final Result [facility]AM[facility] documented in this encounter Visit Diagnoses Not on filedocumented in this encounter Additional Health Concerns Infection Onset Date Last Indicated Resolved Time COVID: Suspected 12/01/2024 12/01/2024 12/01/2024 2:11 PM FURNACE OPERATOR OIL OR GAS Influenza, adult 12/01/2024 12/01/2024 12/08/2024 3:06 AM FURNACE OPERATOR OIL OR GAS documented as of this encounter Care Teams E/M Engineer Relationship Specialty Start Date End Date No, Physician PCP - General 08/21/17 01/05/24 documented as of this encounter
--- OUTSIDE RECORDS SUMMARY | 2019-10-30 01:00 | XMS_ITS | Encounter Summary ---
Author Organization [facility] Healthcare Address [address] [place] [address] Care Team Providers Care Director Sports Name Role Phone No, Physician Primary Care Provider [phone] Reason for Visit * Diagnostic Imaging (Routine) - Pending Review Specialty Diagnoses / Procedures Referred By Contac t Referred To Contact Procedures Breast Imaging Screening Outside Reference Transcribed Order, Provider Referral ID Status Reason Start Date Expiration Date V isits Requested Visits Authorized [id number] Pending Review 02/05/2025 03/07/2026 1 1 Encounter Details Date Type Department Care Team (Late st Contact Info) Description 10/30/2019 Hospital Encounter [facility] Radiology [facility] [address] [place] [id number] Social History Tobacco Use Types Packs/Day Years Used Date Smoking Tobacco: Light Smoker Smokeless Tobacco: Never Comments Unknown Sex and Gender Information Value Date Recorded Sex Assigned at Not on file Legal Sex Female 4:36 PM FORESTRY PILOT Gender Identity Not on file Sexual Orientation Not on file documented as of this encounter Plan of Treatment Not on file documented as of this encounter Procedures Procedure Name Priority Date/Time Associated Diagnosis Comments BREAST IMAGING MG SCREENING OUTSIDE REFERENCE Routine 10/30/2019 12:00 AM FORESTRY PILOT documented in this encounter Results * Breast Imaging Screening Outside Reference (10/30/2019 12:00 AM FORESTRY PILOT) Impressions RAD[facility]MAMMO_[facility] - 02/05/2025 1:45 PM CDT These images are for Reference purposes only and have not been reviewed by [facility] Radiology. There will be no report generated by a [facility] Radiologist. Narrative RAD_MAMMO_[facility] - 02/05/2025 1:45 PM CDT EXAMINATION: Images For Reference Purposes Only us Provider Transcribed Order IMG MAMMO PROCEDURES Final Result RAD_MAMMO[facility] documented in this encounter Visit Diagnoses Not on filedocumented in this encounter Additional Health Concerns Infection Onset Date Last Indicated Resolved Time COVID: Suspected 12/01/2024 12/01/2024 12/01/2024 2:11 PM FORESTRY PILOT Influenza, adult 12/01/2024 12/01/2024 12/08/2024 3:06 AM FORESTRY PILOT documented as of this encounter Care Teams Director Sports Relationship Specialty Start Date End Date No, Physician PCP - General 08/21/17 01/05/24 documented as of this encounter
--- OUTSIDE RECORDS SUMMARY | 2020-12-26 01:00 | XMS_ITS | Encounter Summary ---
Author Organization [facility] Healthcare Address [address] [place] [address] Care Team Providers Care Preschool Director Name Role Phone No, Physician Primary Care Provider [phone] Reason for Visit * Diagnostic Imaging (Routine) - Pending Review Specialty Diagnoses / Procedures Referred By Contac t Referred To Contact Procedures Breast Imaging Screening Outside Reference Transcribed Order, Provider Referral ID Status Reason Start Date Expiration Date V isits Requested Visits Authorized [id number] Pending Review 02/05/2025 03/07/2026 1 1 Encounter Details Date Type Department Care Team (Late st Contact Info) Description 12/26/2020 Hospital Encounter [facility] [address] [place] [id number] Social History Tobacco Use Types Packs/Day Years Used Date Smoking Tobacco: Light Smoker Smokeless Tobacco: Never Comments Unknown Sex and Gender Information Value Date Recorded Sex Assigned at Not on file Legal Sex Female 4:36 PM BILL CUTTER Gender Identity Not on file Sexual Orientation Not on file documented as of this encounter Plan of Treatment Not on file documented as of this encounter Procedures Procedure Name Priority Date/Time Associated Diagnosis Comments BREAST IMAGING MG SCREENING OUTSIDE REFERENCE Routine 12/26/2020 12:00 AM BILL CUTTER documented in this encounter Results * Breast Imaging Screening Outside Reference (12/26/2020 12:00 AM BILL CUTTER) Impressions [facility]MO[facility] - 02/05/2025 1:45 PM CDT These images are for Reference purposes only and have not been reviewed by [facility]. There will be no report generated by a [facility] Radiologist. Narrative RAD_MAMMO_[facility] - 02/05/2025 1:45 PM CDT EXAMINATION: Images For Reference Purposes Only us Provider Transcribed Order IMG MAMMO PROCEDURES Final Result RAD_MAMMO_[facility] documented in this encounter Visit Diagnoses Not on filedocumented in this encounter Additional Health Concerns Infection Onset Date Last Indicated Resolved Time COVID: Suspected 12/01/2024 12/01/2024 12/01/2024 2:11 PM BILL CUTTER Influenza, adult 12/01/2024 12/01/2024 12/08/2024 3:06 AM BILL CUTTER documented as of this encounter Care Teams Preschool Director Relationship Specialty Start Date End Date No, Physician PCP - General 08/21/17 01/05/24 documented as of this encounter
--- NOTE | ~2025-06-30 | XR_ITS ---
EXAM/ PROCEDURE: XR knee RT 3V - 06/30/2025 14:23 CDT HISTORY: 50 years old Female with Z96.651 - Presence of right artificial knee joint COMPARISON: None available TECHNIQUE: Three view(s) each FINDINGS/ IMPRESSION: There are no fractures or dislocations.Bilateral total knee arthroplasty. Intact hardware and no loosening. Reviewed, dictated and finalized at location N.
--- NOTE | ~2025-06-30 | XR_ITS ---
XR knee LT 3V 06/30/2025 14:31 Indication: Left artificial knee joint Procedure: 3 views left knee Comparison: 09/09/2024 Findings: There is left total knee arthroplasty with patellar resurfacing. Prosthesis well seated without evidence for loosening. No fracture, subluxation or dislocation. No significant joint effusion. No foreign bodies. Impression: 1: No significant bone or joint abnormality. Reviewed, dictated and finalized at location O. Impression: 1: No significant bone or joint abnormality.
--- OUTSIDE RECORDS SUMMARY | 2025-06-30 15:43 | XMS_ITS | Clinical Summary ---
Author Organization [facility] Address [address] [place] [address] Care Team Providers Care Blunger Name Role Phone Kaylee Avalos Primary Care Pr ovider Allergies No known active allergies Medications phentermine 30 mg capsule 0 7 Active escitalopram (LEXAPRO) 10 mg tablet escitalopram 10 mg tablet Active levothyroxine (SYNTHROID) 75 mcg tablet levothyroxine 75 mcg tablet TK 1 T PO QD IN THE MORNING Active LORazepam (ATIVAN) 1 mg tablet lorazepam 1 mg tablet Active Active Problems No known active problems Immunizations Immunization Administration Dates Next Due Influenza, Quadrivalent, Spl it, Preservative Free, Intramuscular 08/13/2023 Influenza, Trivalent, Preservative Free, Intramu scular 08/06/2024 Surgical History Surgery Date Site/Laterality Comments CERVICAL FUSION 10/28/2011 - 10/27/2012 Social History Tobacco Use Types Packs/Day Years Used Date Smoking Tobacco: Light Smoker Smokeless Tobacco: Never Comments Unknown Sex and Gender Information Value Date Recorded Sex Assigned at Not on file Legal Sex Female 4:36 PM REGULATORY COMPLIANCE DIRECTOR Gender Identity Not on file Sexual Orientation Not on file Obstetrics History Last Filed Vital Signs Vital Sign Reading Time Taken Comments Blood Pressure 130/74 12/15/2019 10:03 AM REGULATORY COMPLIANCE DIRECTOR Pulse 71 12/15/2019 10:03 AM REGULATORY COMPLIANCE DIRECTOR Temperature 36.6 C (97.9 F) 12/15/2019 10:03 AM REGULATORY COMPLIANCE DIRECTOR Respiratory Rate 16 12/15/2019 10:03 AM REGULATORY COMPLIANCE DIRECTOR Oxygen Saturation 97% 12/15/2019 10:03 AM REGULATORY COMPLIANCE DIRECTOR Inhaled Oxygen Concentration - - Weight 94.3 kg (208 lb) 12/15/2019 10:03 AM REGULATORY COMPLIANCE DIRECTOR Height 165.1 cm (5' 5) 12/15/2019 10:03 AM REGULATORY COMPLIANCE DIRECTOR Body Mass Index 34.61 12/15/2019 10:03 AM REGULATORY COMPLIANCE DIRECTOR Plan of Treatment Health Maintenance Due Date Last Done Comments Cervical Cancer Screening 1977 Colon Cancer Screening-Colonoscopy 1977 Depression Screening 1977 Hepatitis C Screening 1977 DTaP/Tdap/Td Vaccine (1 - Tdap) 1988 Hepatitis B Screening 1995 Regular Well Visit/Exam 18-64 1995 Pneumococcal vaccine <65 (1 of 2 - PCV) 1996 Covid-19 Vaccine (4 - season) 2025 09/29/2021, 11/04/2020, 10/14/2020 Influenza Vaccine (#1) 2025 08/06/2024, 2022 Breast Cancer Screening-Mammogram 02/04/2026 025 Procedures Procedure Name Priority Date/Time Associated Diagnosis Comments SCREENING MAMMOGRAM BILATERAL W RON Schedule Routine, Read Routine (OP Routine) 02/04/2025 7:29 AM CDT Screening mammogram for breast cancer from Last 3 Months or Most Recently Relevant to Health Maintenance Results * Screening Mammogram Bilateral W Ron (02/04/2025 7:29 AM CDT) Anatomical Region Laterality Modality Breast Bilateral Mammography Narrative 02/05/2025 3:09 PM CDT Mammogram Technique: Bilateral Digital Breast Tomosynthesis, Bilateral C-view 2D Screening mammogram. Views obtained: bilateral craniocaudal and bilateral mediolateral oblique. Computer Aided Detection was performed. Mammogram Findings: The present examination has been compared to prior imaging studies performed at [facility]. [facility], [place] on 02/06/2022, 02/05/2023 and 02/11/2024. There are scattered areas of fibroglandular density. There are multiple masses in both breasts. There is no suspicious abnormality in either breast. Impression: There is no mammographic evidence of malignancy. Annual screening mammography is recommended. OVERALL FINAL ASSESSMENT: BI-RADS CATEGORY 2: Benign. Procedure Note Daphney Marcus MD - 02/05/2025 Mammogram Technique: Bilateral Digital Breast Tomosynthesis, Bilateral C-view 2D Screening mammogram. Views obtained: bilateral craniocaudal and bilateral mediolateral oblique. Computer Aided Detection was performed. Mammogram Findings: The present examination has been compared to prior imaging studies performed at [facility]. [facility], [place] on 02/06/2022, 02/05/2023 and 02/11/2024. There are scattered areas of fibroglandular density. There are multiple masses in both breasts. There is no suspicious abnormality in either breast. Impression: There is no mammographic evidence of malignancy. Annual screening mammography is recommended. OVERALL FINAL ASSESSMENT: BI-RADS CATEGORY 2: Benign. us Self Screening Mammogram IMG MAMMO PROCEDURES Fi nal Result from Last 3 Months or Most Recently Relevant to Health Maintenance Insurance [facility] PL[facility] Care Teams Blunger Relationship Specialty Start Date End Date Kaylee Avalos PA PCP - General Physician Top Cleaner 01/06/24
--- OUTSIDE RECORDS SUMMARY | 2025-06-30 15:43 | XMS_ITS | Encounter Summary ---
Author Organization [facility] Address [address] [place] [address] Phone Care Team Providers Care Mental Health Social Worker Name Role Phone Kaylee Avalos Primary Care Provider Encounter Details Date Type Department Care Team (Late st Contact Info) Description 07/01/2024 Lab Requisition [facility] [address] [place] [address] Simona Smith, REHAB NURSING TECH, FOCUSED FACTORY MANAGER [address] [place] [address] Encounter for pre-employment examination Social History Tobacco Use Types Packs/Day Years Used Date Smoking Tobacco: Never Assessed Comments No Sex and Gender Information Value Date Recorded Sex Assigned at Not on file Legal Sex Female 3:02 PM CDT Gender Identity Not on file Sexual Orientation Not on file documented as of this encounter Plan of Treatment Not on file documented as of this encounter Procedures Procedure Name Priority Date/Time Associated Diagnosis Comments QUANTIFERON-TB GOLD PLUS Routine 06/30/2024 3:00 PM CDT Encounter for pre-employment examination MMRV PANEL Routine 06/30/2024 3:00 PM CDT Encounter for pre-employment examination MUMPS IGG Routine 06/30/2024 3:00 PM CDT Encounter for pre-employment examination HERPES ZOSTER (VARICELLA) IGG Routine 06/30/2024 3:00 PM CDT Encounter for pre-employment examination RUBEOLA (MEASLES) IGG Routine 06/30/2024 3:00 PM CDT Encounter for pre-employment examination RUBELLA IMMUNITY IGG Routine 06/30/2024 3:00 PM CDT Encounter for pre-employment examination HEPATITIS B SURFACE ANTIBODY (HBSAB) Routine 06/30/2024 3:00 PM CDT Encounter for pre-employment examination documented in this encounter Results * HERPES ZOSTER (VARICELLA) IGG (06/30/2024 3:00 PM CDT) VARICELLA ZOSTER IGG 2.8 >=1.1 AI 07/01/2024 3:14 PM CDT [facility] Blood No Phlebotomy Charged / Unknown 06/30/2024 3:00 PM CDT 07/01/2024 8:18 AM CDT Narrative [facility] - 07/01/2024 3:14 PM CDT <= 0.8 Negative. No detectable VZV IgG antibody. 0.9 - 1.0 Equivocal >=1.1 Positive Antibody testing was performed by multiplex flow immunoassay on the Red Mapache platform. us Simona Smith REHAB NURSING TECH, FOCUSED FACTORY MANAGER IMMUNOLOGY ORDERABL ES Final Result [facility] [address] [place] [address], * RUBEOLA (MEASLES) IGG (06/30/2024 3:00 PM CDT) MEASLES AB IGG 2.5 >=1.1 AI 07/01/2024 3:14 PM CDT [facility] Blood No Phlebotomy Charged / Unknown 06/30/2024 3:00 PM CDT 07/01/2024 8:18 AM CDT Narrative [facility] - 07/01/2024 3:14 PM CDT <= 0.8 Negative. No detectable Measles IgG antibody. 0.9 - 1.0 Equivocal >=1.1 Positive Antibody testing was performed by multiplex flow immunoassay on the BioPlex platform. us Simona L [employer] REHAB NURSING TECH, FOCUSED FACTORY MANAGER IMMUNOLOGY ORDERABL ES Final Result Performing Organization Address [facility]/ZIP Co de Phone Number [facility] [address] [place] [address], [place] * RUBELLA IMMUNITY IGG (06/30/2024 3:00 PM CDT) RUBELLA IMMUNITY Immune Immune, Invalid [facility]AGER TRACK 07/01/2024 3:14 PM CDT [facility] RUBELLA IGG QUANT 2.00 >=1.0 AI AI 07/01/2024 3:14 PM CDT [facility] Blood No Phlebotomy Charged / Unknown 06/30/2024 3:00 PM CDT 07/01/2024 8:18 AM CDT Narrative [facility] - 07/01/2024 3:14 PM CDT Antibody testing was performed by multiplex flow immunoassay on the BioPlex platform. us Simona L [employer] REHAB NURSING TECH, FOCUSED FACTORY MANAGER CHEMISTRY ORDERABLE S Final Result Performing Organization Address [facility] Co de Phone Number [facility] [address] [place] [address], [place] * MUMPS IGG (06/30/2024 3:00 PM CDT) Mumps Ab IgG 3.6 >=1.1 AI 07/01/2024 3:14 PM CDT [facility] Blood No Phlebotomy Charged / Unknown 06/30/2024 3:00 PM CDT 07/01/2024 8:18 AM CDT Narrative [facility] - 07/01/2024 3:14 PM CDT <= 0.8 Negative. No detectable Mumps IgG antibody. 0.9 - 1.0 Equivocal >=1.1 Positive Antibody testing was performed by multiplex flow immunoassay on the Red Mapache platform. us Simona Smith APRN, CNP IMMUNOLOGY ORDERABL ES Final Result [facility] [address] [place] [address], [place] * QUANTIFERON-TB GOLD PLUS (06/30/2024 3:00 PM CDT) NIL CONTROL 0.00 <8.01 IU/mL 07/03/2024 9:59 AM CDT [facility] TB ANTIGEN 1 0.00 <0.35 IU/mL 07/03/2024 9:59 AM CDT [facility] TB ANTIGEN 2 0.00 <0.35 IU/mL 07/03/2024 9:59 AM CDT [facility] MITOGEN CONTROL 10.00 >0.49 IU/mL 07/03/20 9:59 AM CDT [facility] INTEPRETATION TB NEGATIVE NEGATIVE, NEGATIVE (TB antigen response less than 25% of internal negative control value) 07/03/2024 9:59 AM CDT [facility] Comment:No immune response t o Mycobacterium tuberculosis antigens was noted. M. tuberculosis infection unlikely. Blood No Phlebotomy Charged / Unknown 06/30/2024 3:00 PM CDT 07/01/2024 8:18 AM CDT Narrative [facility] - 07/03/2024 9:59 AM CDT A POSITIVE QUANTIFERON-TB GOLD PLUS RESULT SHOULD NOT BE THE SOLE OR DEFINITIVE BASIS FOR DETERMINING INFECTION WITH M.TUBERCULOSIS. Diagnosing or excluding tuberculosis disease, and assessing the probability of LTBI, requires a combination of epidemiological, historical, medical and diagnostic findings (e.g., acid fast bacilli (AFB) smear and culture, chest xray) that should be taken into account when interpreting QFT-Plus results. Furthermore, the magnitude of the measured gamma interferon level cannot be correlated to stage or degree of infection, level of immune responsiveness, or likelihood for progression to active disease. The Nil control adjusts for background (e.g., elevated levels of circulating gamma interferon or presence of heterophile antibodies). The Mitogen control serves as an internal positive control and verifies each specimen tested can produce a gamma interferon response. Low mitogen may occur with insufficient lymphocytes, reduced lymphocyte activity due to improper specimen handling, filling/mixing of the mitogen tube, or inability of the patient's lymphocytes to generate gamma interferon. Infection with other Mycobacteria, including M. kansasii, M. szulgai, and M. marinum, may cause false positive results. A negative QuantiFERON-TB Gold Plus result does not preclude the possibility of M. tuberculosis infection or tuberculosis disease: false negative results can be due to incorrect blood sample collection/ improper handling of the specimen, stage of infection (e.g., specimen obtained prior to the development of cellular immune response), co-morbid conditions which affect immune function, or other individual immunological factors. The minimum number of lymphocytes required for a reliable test has not been established and may also be variable. Diagnostic testing for Mycobacterium tuberculosis using Interferon Gamma Release Assays should follow applicable published guidelines, including when testing in populations such as children, women, and HIV-infected or otherwise immunocompromised individuals. https://www.cdc.gov/tb/publications/guidelines/testing.htm us Simona Smith APRN, IRAIS IMMUNOLOGY ORDERABL ES Final Result Performing Organization Address [facility] Co de Phone Number [facility] [address] [place] [address], [place] * HEPATITIS B SURFACE ANTIBODY (HBSAB) (06/30/2024 3:00 PM CDT) HEPATITIS B SURFACE ANTIBODY <8.00 mIU/mL 07/01/2024 3:00 PM CDT [facility] Comment:Individual is consid ered not immune to HBV infection. Blood No Phlebotomy Charged / Unknown 06/30/2024 3:00 PM CDT 07/01/2024 8:18 AM CDT us Simona Smith APRN, FOCUSED FACTORY MANAGER CHEMISTRY ORDERABLE S Final Result Performing Organization Address [facility] de Phone Number [facility] [address] [place] [address], documented in this encounter Visit Diagnoses Diagnosis Encounter for pre-employment examination Health examination of defined subpopulation documented in this encounter Care Teams Mental Health Social Worker Relationship Specialty Start Date End Date Kaylee Avalos PA PCP - General Family Medicine 07/29/21 documented as of this encounter
--- OUTSIDE RECORDS SUMMARY | 2025-06-30 15:43 | XMS_ITS | Clinical Summary ---
Author Organization [facility] Address [address] [place] [address] Phone Care Team Providers Care Intellectual Property Counsel Name Role Phone Kaylee Avalos Primary Care Provider Allergies No known active allergies Medications HYDROcodone-joesph taminophen (NORCO) 5-325 MG TabletIndicatio ns:Contusion of knee, right,Contusion of knee, left Take 1-2 Tablets by mouth every 6 hours as needed for Moderate or more severe pain. 15 Tablet 07/29/2021 Active Social History Tobacco Use Types Packs/Day Years Used Date Smoking Tobacco: Never Assessed Comments No Sex and Gender Information Value Date Recorded Sex Assigned at Not on file Legal Sex Female 3:02 PM CDT Gender Identity Not on file Sexual Orientation Not on file Last Filed Vital Signs Vital Sign Reading Time Taken Comments Blood Pressure 138/87 07/29/2021 3:08 PM CDT Pulse 75 07/29/2021 3:08 PM CDT Temperature 36.3 C (97.3 F) 07/29/2021 3:08 PM CDT Respiratory Rate 15 07/29/2021 3:08 PM CDT Oxygen Saturation 99% 07/29/2021 3:08 PM CDT Inhaled Oxygen Concentration - - Weight 95.3 kg (210 lb) 07/29/2021 3:08 PM CDT Height 165.1 cm (5' 5) 07/29/2021 3:08 PM CDT Body Mass Index 34.95 07/29/2021 3:08 PM CDT Plan of Treatment Health Maintenance Due Date Last Done Comments Hepatitis C Virus (HCV) Screening 1977 Mammogram 1977 TdaP Immunization 1977 Hepatitis B Immunization (1 of 3 - 19+ 3-dose series) 1996 Discussion re Starting/Frequency of Mammograms 2017 Cologuard 2022 Immunochemical Fecal Occult Blood 2022 Influenza Immunization (#1) 2025 08/13/2023 SARS-COV-2 Immunization ( season) 2025 09/29/2021, 11/04/2020, 10/14/2020 Colonoscopy 12/24/2027 12/24/2017 Colorectal Cancer Screening 12/24/2027 Respiratory Syncytial Virus (RSV) Immunization (Adult) (1 - 1-dose 75+ series) 2052 Human Papillomavirus (HPV) Immunization Aged Out No longer eligible b ased on patient's age to complete this topic Meningococcal Immunization (ACWY) Aged Out No longer eligible b ased on patient's age to complete this topic Pneumococcal Immunization Combined Aged Out No longer eligible b ased on patient's age to complete this topic Rotavirus Immunization Aged Out No lo nger eligible based on patient's age to complete this topic Care Teams Intellectual Property Counsel Relationship Specialty Start Date End Date Kaylee Avalos PA PCP - General Family Medicine 07/29/21
== END 2025-06-30 14:15 | disposition home or self-care (01) ==
PROVIDERS: PCP Physician Assistant; Visit Provider Physician Assistant Surgical
DX: Z96.653 Presence of artificial knee joint, bilateral (principal)
CPT/HCPCS: 73562